=== PATIENT | female | born 1995 | race Caucasian/White ===

== ENCOUNTER 2016-09-14 00:53 | Observation (INO) ==
[2016-09-14 01:56] LABS: Bilirubin,Urine Negative (Negative); Blood,Urine Negative (Negative); Clarity,Urine Cloudy (Clear); Color,Urine Dark Yellow (Yellow); Glucose,Urine (UA) >=1000 mg/dL (Normal); Ketones,Urine 40 mg/dL (Negative); Leukocyte Esterase,Urine Negative (Negative); Nitrite,Urine Negative (Negative); PH,Urine 5.5 pH Units (5.0-8.0); Protein,Urine Trace mg/dL (Neg-Trace); Specific Gravity,Urine > 1.030 (1.010-1.025); Urobilinogen,Urine Normal (Normal)
[2016-09-14 01:57] LABS: Bacteria,Urine Few per hpf (None-Few); Hyaline Casts,Urine None Seen per lpf (None-Few); Squamous Epithelial Cell,Urine Many per lpf (None-Few)
[2016-09-14 02:06] LABS: Calcium Oxalate Crystals,Urine Present; RBC,Urine 0-3 per hpf (0-3)
[2016-09-14] MEDS ORDERED: NIFEdipine 10 MG CAPSULE PO ONE (02:36)
[2016-09-14] MEDS ORDERED: 0.9 % Sodium Chloride 1,000 ML IVC SCH (02:45)
[2016-09-14 04:00] LABS: Basophils % 0.3 %; Eosinophils % 0.3 %; Hematocrit 35.5 % (35.3-44.9); Immature Granulocytes % 0.5 % (0-4); Lymphocytes # 1.6 K/mcL (0.6-4.6); Lymphocytes % 19.6 %; Mean Corpuscular HGB Conc 33.8 g/dL (31.6-35.5); Mean Corpuscular Hemoglobin 27.8 pg (28.0-33.3); Mean Corpuscular Volume 82.2 fL (83.0-100.0); Mean Platelet Volume 10.2 fL (9.4-12.4); Monocytes # 0.7 K/mcL (0.0-1.3); Monocytes % 8.2 %; Neutrophils # 5.6 K/mcL (1.6-8.9); Platelet Count 185 K/mcL (140-400); Red Blood Count 4.32 M/mcL (3.82-4.97); Red Cell Distribution Width 13.3 % (11.5-14.5); Segmented Neutrophils % 71.1 %
[2016-09-14] MEDS ORDERED: Terbutaline 1 MG/ML VIAL SQ ONE (07:47)
[2016-09-14] MEDS ORDERED: Insulin LISPRO 300 UNITS/3 ML VIAL SQ ONE (07:48)
--- NOTE | 2016-09-14 09:06 | OB/GYN History & Physical ---
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 Weiss is a 21 year old female 3 para 1011 at 31 weeks who presented to labor and delivery with complaint of contractions and vaginal pressure. Patient gets her care at another facility she did call the OB correspondence school instructor for them he wanted her to come to the hospital but she chose to come here instead. Patient states she lives locally did not have transportation. Patient's upon arrival to labor and delivery was rocco irregularly. Patient is a type I diabetic on control. She is being managed by [place] [facility] for her diabetes. Patient is supposed to be on a insulin pump but hers broke and they have not replaced up for her. Blood sugars on admission were over 200. Patient was here last week and had a panic attack while here and had presented with similar complaints. Patient was given 1 dose of Procardia 10 mg on admission contractions spaced out but did not stop. Physician on-call was concerned about her panic attack with tachycardia last week reason did not want to try the terbutaline. Patient has not had steroids yet during this with her [id number] blood sugars I am apprehensive starting them at this time also states that she is not outpatient for long-term management. Patient was closed and thick on admission and after 2 hours she was reexamined also noted to be closed and thick. She is complaining of thick white discharge speculum exam did reveal a thick discharge suggestive candidiasis. Urinalysis did show that she was dehydrated with high specific gravity was greater than 1000 glucose. She denies any leaking of fluid is still having movement. She did receive 1 dose of terbutaline pulse was in the 80s contractions spaced out. Past Med Surg Social Fam HX - Past Medical History Source: patient Medical history: diabetes (type 1), other (History of HELLP syndrome with last ) Psychiatric history: anxiety, depression - Past Surgical History Surgical History: , other (Tubes and her ears) - Social History Smoking Status: Former smoker Smokeless Tobacco Status: No Alcohol use: none Drug use: none Occupational status: unemployed Current living situation: Home - Independent Activity Level: Independent ambulation Recent Out of Country Travel Within the Last 8 Weeks: No Exposure or Possible Exposure to Illness During Travel: No - Family History Mother Living Status: Still Living Hx Family Cardiac Disorders: Yes (CHF) Hx Family Respiratory Disorders: No Hx Family Cancer: No Hx Family GI Disorders: No Hx Family Endocrine Disorder: Yes (DIABETIC) Hx Family Neuromuscular Disorders: No Hx Family Neurologic Disorders: No Hx Family HEENT Disorders: No Hx Family Autoimmune Disorders: No Hx Family Medical Disorders: Yes (factor 5) Obstetrical History - Pregnancies : 3 Para: 1 Term: 1 Ab's: 1 Livin Medications and Allergies NovoLOG SQ 09/04/15 [History] HumuLIN NPH 15 units SQ BID 08/11/16 [History] Vit #108/Iron/FA [ One Tablet] 1 each PO DAILY 09/14/16 [ History] Allergies latex Adverse Reaction (Verified 08/11/16 22:10) Rash Review of System OB All systems PM: reviewed and no additional remarkable complaints except as stated - Genitourinary Genitourinary: vaginal discharge (Thick white with pruritus), other (Complaint of irregular contractions) Exam - Constitutional Constitutional: well developed, well nourished, mild distress, obese - HEENT HEENT: PERRL - Neck Neck exam: full ROM - Lungs Respiratory exam: CTAB - Cardiovascular Cardiovascular exam: RRR - Abdomen Abdomen: Present: gravid - Vagina Vagina: Present: discharge (Sterile speculum exam revealed a thick white vaginal discharge with erythema of the vaginal mucosa suggestive candidiasis) - Cervix Dilation: 0 Effacement: 20 Station: -4 - Uterus Uterus exam: Present: enlarged - Comments Comments: heart tones in 140s reactive contractions were every 2-3 minutes after the terbutaline have spaced out to every 10-15 minutes Results Result Diagrams: 09/14/16 03:54 Abnormal lab results MCV 82.2 fL (83.0-100.0) L 09/14/16 03:54 MCH 27.8 pg (28.0-33.3) L 09/14/16 03:54 POC Glucose 188 (58-89) H 09/14/16 07:44 Urine Clarity Cloudy (Clear) A 09/14/16 01:40 Ur Specific [place] > 1.030 (1.010-1.025) H 09/14/16 01:40 Urine Glucose (UA) >=1000 mg/dL (Normal) H 09/14/16 01:40 Urine Ketones 40 mg/dL (Negative) H 09/14/16 01:40 Urine Microscopic WBC 3-5 per hpf (0-3) H 09/14/16 01:40 Ur Squamous Epith Cells Many per lpf (None-Few) H 09/14/16 01:40 All other labs normal. - VTE Reasons for not Prescribing Prophylaxis: Treatment not Indicated - Low risk for VTE
[2016-09-14] MEDS ORDERED: Insulin Regular, Human 100 UNIT/ML SQ ONE (09:14)
--- NOTE | 2016-09-14 11:26 | OB/GYN Progress Note ---
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 Current Visit: Yes Status: Acute Patient needs to call maternal medicine with her blood sugars to determine what they wanted to since they will not controlled with her current dose (3) Candidiasis of female genitalia Current Visit: Yes Status: Acute We will discharge home with a prescription for terconazole 7 and have her follow -up with her own [employer] [facility] within the next 1-2 days (4) contractions Current Visit: No Status: Acute We will continue close observation the patient continues to contract and requires magnesium sulfate did discuss about transfer to [facility] Subjective - Subjective Interval history: Patient still complaining of pressure but no contraction seen since she got that terbutaline. Blood sugar continues to remain elevated even after 4 units of insulin. Patient needs to take her home Humalog with her own sliding scale. At this point she has made no cervical change I see no contractions and there is no reason for us to have to keep her here. Will discharge home if patient continues to feel pressure she needs to call her own [employer] or head up to [place]. She needs to call about her blood sugars to see what the [facility] doctors wanted to about them since so [id number]. She has not appointment in a couple of days with her [employer] did advise a she needs to call them today or tomorrow to let no discharge was here. We will discharge her home with prescription for terconazole 7. Objective - Vital Signs Vital Signs: Intake and Output 09/13/16 09/14/16 09/14/16 23:59 07:59 15:59 Other: Weight 86.9 kg Patient Weight 09/14/16 23:59 Weight 86.9 kg - Exam FHR: category 1 FHR comments: heart tones 140s reactive no contraction seen Auscultation: bilateral: normal Abdomen: Present: gravid Cervical dilation: closed Cervix effacement: thick station: not engaged - Labs Labs: Abnormal lab results MCV 82.2 fL (83.0-100.0) L 09/14/16 03:54 MCH 27.8 pg (28.0-33.3) L 09/14/16 03:54 POC Glucose 206 (58-89) H 09/14/16 09:12 Urine Clarity Cloudy (Clear) A 09/14/16 01:40 Ur Specific [place] > 1.030 (1.010-1.025) H 09/14/16 01:40 Urine Glucose (UA) >=1000 mg/dL (Normal) H 09/14/16 01:40 Urine Ketones 40 mg/dL (Negative) H 09/14/16 01:40 Urine Microscopic WBC 3-5 per hpf (0-3) H 09/14/16 01:40 Ur Squamous Epith Cells Many per lpf (None-Few) H 09/14/16 01:40
== END 2016-09-14 11:38 | disposition home or self-care (01) ==
LOC: 1NENULAB
PROVIDERS: ADMIT Obstetrics & Gynecology; ATTEND Obstetrics & Gynecology

== ENCOUNTER → 2016-09-30 23:44 | Observation (INO) ==
[2016-09-30 22:05] VITALS: BP 131/77
--- NOTE | 2016-09-30 22:23 | OB/GYN History & Physical ---
Date of Encounter: 09/30/16 Time of Encounter: 22:21 Assessment and Plan (1) Head ache Current visit: Yes Status: Acute History of HELLP - CBC, PIH, CMP - Imitrex - zofran - will monitor Qualifiers: Headache type: unspecified Headache chronicity pattern: acute headache Intractability: not intractable Qualified Code(s): R51 - Headache (2) Nausea Current visit: Yes Status: Acute (3) 33 weeks gestation of Current visit: Yes Status: Acute History of Present Illness HPI: Ms. Weiss is a 21 year old female with type 1 diabetes, who is presenting to the facility for a 3 day history of a right-sided headache and blurred vision. She states her vision is not blurry as it has been right now. She is also nauseated and has photophobia with this headache. She has not vomited. She states she has taken Phenergan with relief of the nausea but Tylenol has not helped with her headache. She describes the headache as dull and on the right side of her head. She also has a one-day history of burning during urination. She states she does have a watery vaginal discharge. She does have a previous history of hellp syndrome with her last . She states she also had a headache and blurred vision like this during that time. She is comfortable in bed eating ice chips at this time. Past Med Surg Social Fam HX - Past Medical History Medical history: diabetes, migraine, other Psychiatric history: anxiety, depression - Past Surgical History Surgical History: , other - Social History Smoking Status: Former smoker Smokeless Tobacco Status: No Alcohol use: none Drug use: none - Family History Mother Living Status: Still Living Hx Family Cardiac Disorders: Yes (SC) Hx Family Respiratory Disorders: No Hx Family Cancer: No Hx Family GI Disorders: No Hx Family Genitourinary Disorders: No Hx Family Endocrine Disorder: Yes (DIABETIC) Hx Family Musculoskeletal Disorders: No Hx Family Neuromuscular Disorders: No Hx Family Neurologic Disorders: No Hx Family HEENT Disorders: No Hx Family Autoimmune Disorders: No Hx Family Reproductive Disorders: No Hx Family Psychosocial Disorders: No Hx Family Medical Disorders: No Obstetrical History - Pregnancies : 3 Para: 1 - History/Complications History/Complications: Type 1 Diabetes HELLP with previous Medications and Allergies HumuLIN NPH 15 units SQ BID 08/11/16 [History] Vit #108/Iron/FA [ One Tablet] 1 each PO DAILY 09/14/16 [ History] Humalog 09/30/16 [History] Allergies latex Adverse Reaction (Verified 08/11/16 22:10) Rash Review of System OB All systems PM: reviewed and no additional remarkable complaints except as stated (Patient denies any syncope or dizziness. She does report a right-sided headache with blurred vision. She denies any trauma. She does report nausea but no vomiting or diarrhea. She reports a watery vaginal discharge. She also reports earning during urination. She has not increased urgency. She denies any hematuria or hematochezia or melena. She reports some minor swelling to her hands and feet. She also reports a diffuse abdominal pain. She denies any chest pain. She states she has been more short of breath today than normal. Patient denies any seizures.) Exam - Vital Signs Vital signs: Initial Vital Signs Temp Pulse Resp BP 97.8 F 108 16 131/77 09/30/16 21:55 09/30/16 21:55 09/30/16 21:55 09/30/16 21:55 - Constitutional Constitutional: well developed, well nourished, no acute distress - HEENT HEENT: EOMI, PERRL, Normocephaly, Mucus Membranes Moist, Other (Cranial nerves II through XII intact, normal rapid alternating movements) - Neck Neck exam: full ROM, normal inspection, supple, trachea midline - Lungs Respiratory exam: CTAB - Cardiovascular Cardiovascular exam: RRR - Abdomen Abdomen: Present: bowel sounds normal, gravid, non tender - Extremities Extremities exam: full ROM, normal capillary refill, normal inspection, radial pulses palpable and symetrical Deep Tendon Reflex Grade: 2+ Normal - Vagina Vagina: Present: normal moisture - Cervix Cervix: Present: discharge (Normal physiologic) Dilation: 0 (closed, fixed, posterior and high) Station: -4 - Uterus Uterus exam: Present: enlarged, normal contour. Absent: tender - Anus/Rectum Anus/Rectum: Present: normal perianal skin Results Result Diagrams: 09/30/16 22:27 09/30/16 22:27 All other labs normal. - Attending Attestation I examined this patient and my medical decision-making was reviewed with the HOUSING INSPECTOR/PA/Advanced Practice Nurse/Resident Physician. I agree with the documented findings, disposition and treatment plan as described except to the extent set forth below.
[2016-09-30 22:32] LABS: Bilirubin,Urine Negative (Negative); Blood,Urine Negative (Negative); Clarity,Urine Clear (Clear); Color,Urine Yellow (Yellow); Glucose,Urine (UA) 500 mg/dL (Normal); Ketones,Urine Trace mg/dL (Negative); Leukocyte Esterase,Urine Negative (Negative); Nitrite,Urine Negative (Negative); Protein,Urine Negative (Neg-Trace); Urobilinogen,Urine Normal (Normal)
[2016-09-30 22:36] LABS: Basophils % 0.1 %; Eosinophils % 0.2 %; Hematocrit 36.8 % (35.3-44.9); Hemoglobin 12.2 g/dL (11.5-15.4); Immature Granulocytes % 0.3 % (0-4); Lymphocytes # 1.7 K/mcL (0.6-4.6); Lymphocytes % 17.4 %; Mean Corpuscular HGB Conc 33.2 g/dL (31.6-35.5); Mean Corpuscular Hemoglobin 27.1 pg (28.0-33.3); Mean Corpuscular Volume 81.8 fL (83.0-100.0); Mean Platelet Volume 10.1 fL (9.4-12.4); Monocytes # 0.8 K/mcL (0.0-1.3); Monocytes % 8.4 %; Neutrophils # 7.2 K/mcL (1.6-8.9); Platelet Count 216 K/mcL (140-400); Red Cell Distribution Width 13.2 % (11.5-14.5); Segmented Neutrophils % 73.6 %
[2016-09-30 22:49] LABS: Alanine Aminotransferase 13 Units/L (0-55); Aspartate Amino Transferase 11 Units/L (5-34); BUN/Creatinine Ratio 17 (6-26); Blood Urea Nitrogen 10 mg/dL (7-20); Lactate Dehydrogenase 351 Units/L (159-327); Uric Acid 3.4 mg/dL (2.6-6.0); eGFR For African Americans > 60 (> 60); eGFR For Non-African Americans > 60 (> 60)
--- NOTE | 2016-09-30 23:23 | Discharge Summary ---
Date of Encounter: 09/30/16 Time of Encounter: 23:24 - Discharge Diagnosis (1) Head ache Priority: Primary Status: Acute Qualifiers: Headache type: unspecified Headache chronicity pattern: acute headache Intractability: not intractable Qualified Code(s): R51 - Headache (2) Nausea Priority: Secondary Status: Acute (3) 33 weeks gestation of Priority: Secondary Status: Acute - Discharge Medications Home Medications: HumuLIN NPH 15 units SQ BID 08/11/16 [History] Vit #108/Iron/FA [ One Tablet] 1 each PO DAILY 09/14/16 [ History] Humalog 09/30/16 [History] Allergies/Adverse Reactions: Allergies latex Adverse Reaction (Verified 08/11/16 22:10) Rash Data Procedures and tests throughout hospitalization: Laboratory Tests 09/30/16 09/30/16 09/30/16 22:00 22:27 22:27 WBC 9.7 RBC 4.50 Hgb 12.2 Hct 36.8 MCV 81.8 L MCH 27.1 L MCHC 33.2 RDW 13.2 Plt Count 216 MPV 10.1 Immature Gran % 0.3 Seg Neutrophils % 73.6 Lymphocytes % 17.4 Monocytes % 8.4 Eosinophils % 0.2 Basophils % 0.1 Neutrophils # 7.2 Lymphocytes # 1.7 Monocytes # 0.8 Eosinophils # 0.0 Basophils # 0.0 Immature Plt Fraction 4.0 BUN 10 Creatinine 0.59 Est GFR ( Amer) > 60 Est GFR (Non-Af Amer) > 60 BUN/Creatinine Ratio 17 Uric Acid 3.4 AST 11 ALT 13 Lactate Dehydrogenase 351 H Urine Color Yellow Urine Clarity Clear Urine pH 7.0 Ur Specific [place] 1.020 Urine Protein Negative Urine Glucose (UA) 500 H Urine Ketones Trace H Urine Blood Negative Urine Nitrite Negative Urine Bilirubin Negative Urine Urobilinogen Normal Ur Leukocyte Esterase Negative Ur Culture Indicated? NO Labs on day of discharge: Labs from last 24 hours 09/30/16 09/30/16 09/30/16 22:27 22:27 22:00 WBC 9.7 RBC 4.50 Hgb 12.2 Hct 36.8 MCV 81.8 L MCH 27.1 L MCHC 33.2 RDW 13.2 Plt Count 216 MPV 10.1 Immature Gran % 0.3 Seg Neutrophils % 73.6 Lymphocytes % 17.4 Monocytes % 8.4 Eosinophils % 0.2 Basophils % 0.1 Neutrophils # 7.2 Lymphocytes # 1.7 Monocytes # 0.8 Eosinophils # 0.0 Basophils # 0.0 Immature Plt Fraction 4.0 Sodium Pending Potassium Pending Chloride Pending Carbon Dioxide Pending BUN 10 Creatinine 0.59 Est GFR ( Amer) > 60 Est GFR (Non-Af Amer) > 60 BUN/Creatinine Ratio 17 Glucose Pending Uric Acid 3.4 Calcium Pending Total Bilirubin Pending AST 11 ALT 13 Alkaline Phosphatase Pending Lactate Dehydrogenase 351 H Serum Total Protein Pending Albumin Pending Urine Color Yellow Urine Clarity Clear Urine pH 7.0 Ur Specific [place] 1.020 Urine Protein Negative Urine Glucose (UA) 500 H Urine Ketones Trace H Urine Blood Negative Urine Nitrite Negative Urine Bilirubin Negative Urine Urobilinogen Normal Ur Leukocyte Esterase Negative Ur Culture Indicated? NO - Impressions Migraine headache. - Additional Comments Patient states that she is no longer nauseated. She states her headache has been relieved. She is requesting discharge at this time. I feel this is reasonable. Her lab work and urinalysis was normal. Date of admission: 09/30/16 21:51 Primary care physician: Shantelle Soares - Patient Status Disposition: Home, Self-Care Condition: Good Functional capacity at discharge: independent ambulation Overall status at discharge: patient is back to baseline - Discharge Instructions Instructions: Migraine Headache (GEN) Follow Up With: Shantelle Soares MD [Primary Care Provider] - Additional Instructions: 1. Please follow-up with your OB doctor within 1 week. 2. Please continue to drink plenty of clear fluids. 3. If her symptoms return or you have any questions or concerns please go to the emergency room. - Diet and Activity Activity: increase activity as tolerated Diet: diabetic diet Hospital Course MEDICAL NUMERICAL CONTROL OPERATOR Time Attestation: Total time spent providing and/or coordinating discharge services: Time Spent: Less than 30 minutes Exam - Constitutional Vitals: Temp Pulse Resp BP 97.8 F 108 16 131/77 09/30/16 21:55 09/30/16 21:55 09/30/16 21:55 09/30/16 21:55 General appearance IM: A&O X 3, pleasant, no acute distress - Attending Attestation I examined this patient and my medical decision-making was reviewed with the [place] CONSULTANT/PA/Advanced Practice Nurse/Resident Physician. I agree with the documented findings, disposition and treatment plan as described except to the extent set forth below.
[2016-09-30 23:28] LABS: Albumin 2.4 g/dL (3.5-5.0); Albumin/Globulin Ratio 0.6 (1.1-2.2); Alkaline Phosphatase 95 Units/L (38-126); Bilirubin,Total 0.2 mg/dL (0.2-1.2); Calcium 9.1 mg/dL (8.6-10.8); Carbon Dioxide 20 mEq/L (19-29); Chloride 108 mEq/L (98-109); Globulin 3.9 g/dL (2.4-3.5); Glucose 165 mg/dL (70-99); Osmolality,Calculated 289 (280-300); Potassium 3.9 mEq/L (3.5-4.5); Sodium 138 mEq/L (136-145); Total Protein 6.3 g/dL (6.0-8.3)
[~2016-09-30 23:44] MED LIST: Ondansetron ODT 4 MG TAB.RAPDIS SL STA; SUMAtriptan succinate 25 MG TABLET PO STA
== END | disposition home or self-care (01) ==
LOC: 1NENULAB
PROVIDERS: ADMIT Obstetrics & Gynecology; ATTEND Obstetrics & Gynecology

== ENCOUNTER 2019-04-08 05:51 | Observation (INO) ==
[2019-04-08] MEDS ORDERED: Nitroglycerin 0.4 MG TAB.SUBL SL PRN ×2 (05:55→07:58)
[2019-04-08] MEDS ORDERED: Aspirin 81 MG TAB.CHEW PO ONE (05:55)
--- NOTE | 2019-04-08 05:58 | Emergency Department Note ---
Disposition Clinical Impression: Hyperglycemia Urinary tract infection Qualifiers: Urinary tract infection type: acute cystitis Hematuria presence: without hematuria Qualified Code(s): N30.00 - Acute cystitis without hematuria Chest pain Qualifiers: Chest pain type: unspecified Qualified Code(s): R07.9 - Chest pain, unspecified Disposition: Admitted As Inpatient Condition: Fair Referrals: NONE,PCP [Primary Care Provider] - Time of Disposition: 07:06 Chest Pain HPI - General Chief Complaint: ED Chest Pain Stated Complaint: CP Hx of OR, and a seizure tonight Time Seen by Provider: 04/08/19 05:53 Source: patient, family Mode of arrival: ambulatory Limitations: no limitations Vital Signs Reviewed: Yes Nursing Notes Reviewed: Yes - History of Present Illness HPI Narrative: 23-year-old female past medical history of type 1 diabetes mellitus, myocardial infarction one year ago with coronary artery dissection plus embolism, currently on aspirin and Plavix, epilepsy on clonazepam well-controlled with last seizure approximately one year ago. Presenting for one day of nausea vomiting, midsternal chest pain with numbness and paresthesias into the upper left extremity. Patient states that she has recently been having urinary symptoms of urgency and dysuria she states that UTIs never triggered her seizure disorder in the past. She denies fevers chills, she states that she has had some neck and back pain but has full range of motion in her neck without rigidity, she has no abnormal bleeding, no other concerns or complaints this time. Upon my initial evaluation, my general impression is that the patient is uncomfortable due to her symptoms. She is otherwise awake, alert, oriented, engaged to conversation and answering questions appropriately. There are no overt lateralizing signs, the patient is in no acute distress; their skin appears to be normal in color, they are not pale, not cyanotic, and not diaphoretic, they are sitting up in hospital bed interacting appropriately with environment. Pt complaint: chest pain (Patient describes pain as 2 out of 10 on the pain scale with worst pain occurring earlier tonight for out of 10 described as a heaviness in the midsternal region.) Onset (ago): hour(s) (Patient will sleep roughly one half ago the symptoms.) Duration: other (Improving) Onset: during rest Pain Location: substernal Severity: mild Severity scale (1-10): 2 Quality: tightness, heaviness Pain Radiation: LUE Context: recent illness Associated symptoms: Reports: nausea, vomiting, dyspnea Treatments prior to arrival chest pain: none - Related Data Home Medications Medication Instructions Recorded Confirmed Insulin LISPRO [HumaLOG] 0 units SQ TIDWM 11/02/17 11/02/17 Aspirin Enteric Coated [Aspirin EC] 81 mg PO DAILY 04/05/18 04/05/18 Atorvastatin Calcium [Lipitor] 80 mg PO DAILY 04/05/18 04/05/18 Clopidogrel [Plavix] 75 mg PO DAILY 04/05/18 04/05/18 Gabapentin [Gralise] 300 mg PO TID 04/05/18 04/05/18 Lisinopril [Zestril] 5 mg PO DAILY 04/05/18 04/05/18 clonazePAM [Clonazepam] 1 mg PO BID 04/05/18 04/05/18 Previous Rx's Medication Instructions Recorded HydrOXYzine Pamoate [Vistaril] 50 mg PO QID PRN #10 capsule 11/02/17 Ibuprofen [Motrin] 800 mg PO Q8HR #15 tablet 11/02/17 Cyclobenzaprine [Flexeril] 10 mg PO TID PRN #20 tablet 04/05/18 Tramadol HCl/Acetaminophen 1 each PO Q6HR PRN 3 Days #10 04/05/18 [Ultracet Tablet] tablet Ondansetron ODT [Zofran ODT] 4 mg SL Q8HR PRN #14 tab.rapdis 08/13/18 Allergies Allergy/AdvReac Type Severity Reaction Status Date / Time latex AdvReac Rash Verified 11/02/17 23:16 Review of Systems: *See History of Present Illness for more detail Constitutional: Denies: fever, chills Cardiovascular: Admits: chest pain Respiratory: Admits: dyspnea, denies: cough, hemoptysis Gastrointestinal: Admits: nausea, vomiting, denies: Abdominal pain, diarrhea, constipation, hematemesis, melena, hematochezia Genitourinary: Denies: hematuria Musculoskeletal: Admits: back pain, neck pain Integumentary: Denies: rash Neurological: Admits to weakness Denies: headache, lightheadedness/dizziness, numbness, paresthesias, difficulty with ambulation. Endocrine: Admits: fatigue Hematological/Lymphatic: Denies: easy bleeding, easy bruising All systems ED: reviewed and negative except as stated. Review of Systems: As Per HPI Chest Pain PMH - Past Medical History Medical history: Reports: diabetes, migraine, myocardial infarction Surgical history: Reports: , other Psychiatric history: Reports: anxiety, depression [employer] history: Reports: other - Social History Smoking Status: 2nd Hand Smoke Exposure Alcohol use: Reports: none Drug use: Reports: none Physical Exam Constitutional: No acute distress, [id number], engaged to conversation, speech is fluid, answers questions appropriately Neuro: GCS 15, no overt focal neurological deficits Head: Atraumatic, normocephalic Eyes: Pupils equal, round and reactive to light, no scleral icterus, no conjunctival injection Neck: Trachea midline without deviation. Anterior neck is supple without swelling. *Chest: Symmetric chest wall rise *Heart: Cardiac rhythm and rate are regular with S1 and S2 , no S3 or S4 appreciated, no murmurs, gallops, rubs, or clicks. *Lungs: Lungs are clear to auscultation bilaterally, without accessory muscle use or prolonged expiratory phase. No wheezes, rhonchi or stridor appreciated. Abdomen: Abdomen is flat, soft to palpation, normal bowel sounds. No abdominal bruit auscultated. Non-distended, non-rigid, no organomegaly, no ascites appreciated. No pulsatile mass, no tenderness or guarding to palpation in all four quadrants, no rebound Extremities: Normal capillary refill without evidence of pedal edema, joint swelling or erythema. Pulses/motor intact in all 4 extremities. Psychiatric exam: Patient displays a normal affect and mood for the environment. No overt signs of hallucination. Integumentary: warm, dry, intact, normal color. No rash, cyanosis, diaphoresis, erythema, or pallor - General Limitations: no limitations General appearance: alert, in no apparent distress Course Course Narrative: ED chest pain workup basic labs, urinalysis, urine , coags, troponin, chest x-ray/old EKG Aspirin plus nitroglycerin the management of patient's symptoms. Vital Signs Temperature 97.9 F 04/08/19 06:00 Pulse Rate 86 04/08/19 06:00 Respiratory Rate 18 04/08/19 06:00 Blood Pressure 117/76 04/08/19 06:00 O2 Sat by Pulse Oximetry 98 04/08/19 06:00 Temperature 97.9 F 04/08/19 06:00 Pulse Rate 86 04/08/19 06:00 Respiratory Rate 18 04/08/19 06:00 Blood Pressure 117/76 04/08/19 06:00 O2 Sat by Pulse Oximetry 98 04/08/19 06:00 Oxygen Delivery Oxygen Delivery Room Air Chest Pain - MDM Narrative Medical decision making narrative: Patient's urinalysis is positive for urinary tract infection. Glucoses over 500. I will give the patient 1 g of Rocephin at this time and start her on 2 L of IV fluids. Remainder of labs are currently pending. Patient will be signed out to day shift staff of Dr. Parker Nesbitt and Dr. Monique Trujillo at the end of my shift. Please see documentation by these physicians for further evaluation, management, and final disposition. The patient is hemodynamically stable at the time of transfer of care. - Lab Data Result diagrams: 04/08/19 06:08 04/08/19 06:08 Lab Results 04/08/19 04/08/19 04/08/19 Range/Units 06:08 06:08 06:08 WBC 7.3 (4.3-11.1) K/mcL RBC 5.32 H (3.82-4.97) M/mcL Hgb 14.8 (11.5-15.4) g/dL Hct 43.7 (35.3-44.9) % MCV 82.1 L (83.0-100.0) fL MCH 27.8 L (28.0-33.3) pg MCHC 33.9 (31.6-35.5) g/dL RDW 12.7 (11.5-14.5) % Plt Count 217 (140-400) K/mcL MPV 9.5 (9.4-12.4) fL Immature Gran % 0.3 (0-4) % Seg Neutrophils % 86.3 % Lymphocytes % 8.6 % Monocytes % 4.6 % Eosinophils % 0.1 % Basophils % 0.1 % Neutrophils # 6.3 (1.6-8.9) K/mcL Lymphocytes # 0.6 (0.6-4.6) K/mcL Monocytes # 0.3 (0.0-1.3) K/mcL Eosinophils # 0.0 (0.0-0.6) K/mcL Basophils # 0.0 (0.0-0.2) K/mcL PT 10.3 (9.4-12.1) Seconds INR 0.9 APTT 29.2 (26.0-36.0) Seconds Sodium 138 (136-145) mEq/L Potassium 4.0 (3.5-5.1) mEq/L Chloride 102 (98-107) mEq/L Carbon Dioxide 24 (23-29) mEq/L BUN 15 (6-20) mg/dL Creatinine 0.59 L (0.60-1.20) mg/dL Est GFR ( Amer) > 60 (> 60) Est GFR (Non-Af Amer) > 60 (> 60) BUN/Creatinine Ratio 25 (6-26) Glucose 502 H* (70-105) mg/dL Calculated Osmolality 309 H (280-300) Calcium 9.0 (8.6-10.3) mg/dL Troponin I < 0.03 (< 0.04) ng/mL Urine Color (Yellow) Urine Clarity (Clear) Urine pH (5.0-8.0) pH Units Ur Specific [place] (1.010-1.025) Urine Protein (Neg-Trace) mg/dL Urine Glucose (UA) (Normal) mg/dL Urine Ketones (Negative) mg/dL Urine Blood (Negative) Urine Nitrite (Negative) Urine Bilirubin (Negative) Urine Urobilinogen (Normal) mg/dL Ur Leukocyte Esterase (Negative) Urine Microscopic RBC (0-3) per hpf Urine Microscopic WBC (0-3) per hpf Ur Squamous Epith Cells (None-Few) per lpf Urine Bacteria (None-Few) per hpf Hyaline Casts (None-Few) per lpf Ur Culture Indicated? (NO) Urine Test (Negative) 04/08/19 04/08/19 Range/Units 06:15 06:15 WBC (4.3-11.1) K/mcL RBC (3.82-4.97) M/mcL Hgb (11.5-15.4) g/dL Hct (35.3-44.9) % MCV (83.0-100.0) fL MCH (28.0-33.3) pg MCHC (31.6-35.5) g/dL RDW (11.5-14.5) % Plt Count (140-400) K/mcL MPV (9.4-12.4) fL Immature Gran % (0-4) % Seg Neutrophils % % Lymphocytes % % Monocytes % % Eosinophils % % Basophils % % Neutrophils # (1.6-8.9) K/mcL Lymphocytes # (0.6-4.6) K/mcL Monocytes # (0.0-1.3) K/mcL Eosinophils # (0.0-0.6) K/mcL Basophils # (0.0-0.2) K/mcL PT (9.4-12.1) Seconds INR APTT (26.0-36.0) Seconds Sodium (136-145) mEq/L Potassium (3.5-5.1) mEq/L Chloride (98-107) mEq/L Carbon Dioxide (23-29) mEq/L BUN (6-20) mg/dL Creatinine (0.60-1.20) mg/dL Est GFR ( Amer) (> 60) Est GFR (Non-Af Amer) (> 60) BUN/Creatinine Ratio (6-26) Glucose (70-105) mg/dL Calculated Osmolality (280-300) Calcium (8.6-10.3) mg/dL Troponin I (< 0.04) ng/mL Urine Color Yellow (Yellow) Urine Clarity Cloudy A (Clear) Urine pH 7.0 (5.0-8.0) pH Units Ur Specific [place] > 1.030 H (1.010-1.025) Urine Protein Negative (Neg-Trace) mg/dL Urine Glucose (UA) >=1000 H (Normal) mg/dL Urine Ketones 40 H (Negative) mg/dL Urine Blood Negative (Negative) Urine Nitrite Positive A (Negative) Urine Bilirubin Negative (Negative) Urine Urobilinogen Normal (Normal) mg/dL Ur Leukocyte Esterase Small H (Negative) Urine Microscopic RBC 0-3 (0-3) per hpf Urine Microscopic WBC TNTC H (0-3) per hpf Ur Squamous Epith Cells Many H (None-Few) per lpf Urine Bacteria Many H (None-Few) per hpf Hyaline Casts None Seen (None-Few) per lpf Ur Culture Indicated? YES A (NO) Urine Test Negative (Negative) - EKG Data EKG attestation: Yes I reviewed and interpreted this EKG. EKG results narrative: The patients EKG shows a sinus rhythm at a rate of 86 beats per minute, VT interval of 140 milliseconds, a QRS duration of 81 milliseconds, a QT/QTc interval of 359 / 430 milliseconds respectively. There are no significant ST segment elevations, depressions, pathologic Q waves, abnormal T-wave inversions, nor any other signs of acute ischemic change. This EKG that was performed today is generally consistent in morphology with prior EKG that was performed on August [id number]. Heart Score - Score History: Moderately Suspicious EKG: Normal Age: Less than 45 Risk Factors: Equal/Greater than 3 risk factor or history of atherosclerotic d isease Troponin: Less than normal limit HEART Score Total: 3
[2019-04-08 06:20] LABS: Basophils % 0.1 %; Eosinophils % 0.1 %; Hematocrit 43.7 % (35.3-44.9); Hemoglobin 14.8 g/dL (11.5-15.4); Immature Granulocytes % 0.3 % (0-4); Lymphocytes # 0.6 K/mcL (0.6-4.6); Lymphocytes % 8.6 %; Mean Corpuscular HGB Conc 33.9 g/dL (31.6-35.5); Mean Corpuscular Hemoglobin 27.8 pg (28.0-33.3); Mean Corpuscular Volume 82.1 fL (83.0-100.0); Mean Platelet Volume 9.5 fL (9.4-12.4); Monocytes # 0.3 K/mcL (0.0-1.3); Monocytes % 4.6 %; Neutrophils # 6.3 K/mcL (1.6-8.9); Platelet Count 217 K/mcL (140-400); Red Blood Count 5.32 M/mcL (3.82-4.97); Red Cell Distribution Width 12.7 % (11.5-14.5); Segmented Neutrophils % 86.3 %; White Blood Count 7.3 K/mcL (4.3-11.1)
[2019-04-08 06:30] LABS: INR 0.9; Prothrombin Time 10.3 Seconds (9.4-12.1)
[2019-04-08 06:31] LABS: Bilirubin,Urine Negative (Negative); Blood,Urine Negative (Negative); Clarity,Urine Cloudy (Clear); Color,Urine Yellow (Yellow); Glucose,Urine (UA) >=1000 mg/dL (Normal); Ketones,Urine 40 mg/dL (Negative); Leukocyte Esterase,Urine Small (Negative); Nitrite,Urine Positive (Negative); Protein,Urine Negative (Neg-Trace); Specific Gravity,Urine > 1.030 (1.010-1.025); Urobilinogen,Urine Normal (Normal)
[2019-04-08 06:33] LABS: Bacteria,Urine Many per hpf (None-Few); Hyaline Casts,Urine None Seen per lpf (None-Few); RBC,Urine 0-3 per hpf (0-3); Squamous Epithelial Cell,Urine Many per lpf (None-Few); WBC,Urine TNTC per hpf (0-3)
[2019-04-08 06:33] LABS: Activated Partial Thrombo Time 29.2 Seconds (26.0-36.0)
[2019-04-08 06:44] LABS: BUN/Creatinine Ratio 25 (6-26); Blood Urea Nitrogen 15 mg/dL (6-20); Carbon Dioxide 24 mEq/L (23-29); Chloride 102 mEq/L (98-107); Glucose 502 mg/dL (70-105); Osmolality,Calculated 309 (280-300); Sodium 138 mEq/L (136-145); Troponin I < 0.03 ng/mL (< 0.04); eGFR For African Americans > 60 (> 60); eGFR For Non-African Americans > 60 (> 60)
[2019-04-08] MEDS ORDERED: cefTRIAXone 1,000 MG in 0.9 % Sodium Chloride Mini Bag 100 ML IVPB ONE (06:49)
[2019-04-08] MEDS ORDERED: Ondansetron 4 MG/2 ML VIAL IVP STA (06:55)
--- NOTE | 2019-04-08 06:58 | Emergency Department Note ---
Disposition Clinical Impression: Hyperglycemia Urinary tract infection Qualifiers: Urinary tract infection type: acute cystitis Hematuria presence: without hematuria Qualified Code(s): N30.00 - Acute cystitis without hematuria Chest pain Qualifiers: Chest pain type: unspecified Qualified Code(s): R07.9 - Chest pain, unspecified Disposition: Admitted As Inpatient Condition: Fair Referrals: NONE,PCP [Primary Care Provider] - Time of Disposition: 07:05 General Adult HPI - General Chief complaint: ED Chest Pain Stated complaint: CP Hx of SC, and a seizure tonight Time Seen by Provider: 04/08/19 05:53 Source: patient, family Mode of arrival: ambulatory Limitations: no limitations Nursing Notes Reviewed: Yes Vital Signs Reviewed: Yes - History of Present Illness Pain Scale: 2 - Related Data Home Medications Medication Instructions Recorded Confirmed Insulin LISPRO [HumaLOG] 0 units SQ TIDWM 11/02/17 11/02/17 Aspirin Enteric Coated [Aspirin EC] 81 mg PO DAILY 04/05/18 04/05/18 Atorvastatin Calcium [Lipitor] 80 mg PO DAILY 04/05/18 04/05/18 Clopidogrel [Plavix] 75 mg PO DAILY 04/05/18 04/05/18 Gabapentin [Gralise] 300 mg PO TID 04/05/18 04/05/18 Lisinopril [Zestril] 5 mg PO DAILY 04/05/18 04/05/18 clonazePAM [Clonazepam] 1 mg PO BID 04/05/18 04/05/18 Previous Rx's Medication Instructions Recorded HydrOXYzine Pamoate [Vistaril] 50 mg PO QID PRN #10 capsule 11/02/17 Ibuprofen [Motrin] 800 mg PO Q8HR #15 tablet 11/02/17 Cyclobenzaprine [Flexeril] 10 mg PO TID PRN #20 tablet 04/05/18 Tramadol HCl/Acetaminophen 1 each PO Q6HR PRN 3 Days #10 04/05/18 [Ultracet Tablet] tablet Ondansetron ODT [Zofran ODT] 4 mg SL Q8HR PRN #14 tab.rapdis 08/13/18 Allergies Allergy/AdvReac Type Severity Reaction Status Date / Time latex AdvReac Rash Verified 11/02/17 23:16 Past Medical History - Past Medical History Medical history: Reports: diabetes, migraine, myocardial infarction Surgical history: Reports: , other Psychiatric history: Reports: anxiety, depression [employer] history: Reports: other - Social History Smoking Status: Never smoker Smokeless Tobacco Status: No Alcohol use: Reports: none Drug use: Reports: none Physical Exam - General Limitations: no limitations General appearance: alert, in no apparent distress Course Vital Signs Temperature 97.9 F 04/08/19 06:00 Pulse Rate 86 04/08/19 06:00 Respiratory Rate 18 04/08/19 06:00 Blood Pressure 117/76 04/08/19 06:00 O2 Sat by Pulse Oximetry 98 04/08/19 06:00 Temperature 97.9 F 04/08/19 06:00 Pulse Rate 86 04/08/19 06:00 Respiratory Rate 18 04/08/19 06:00 Blood Pressure 117/76 04/08/19 06:00 O2 Sat by Pulse Oximetry 98 04/08/19 06:00 Oxygen Delivery Oxygen Delivery Room Air Medical Decision Making - Medical Records Medical records reviewed: Yes I reviewed the patient's medical records. - Lab Data Lab results reviewed: Yes I reviewed the patient's lab results. Result diagrams: 04/08/19 06:08 04/08/19 06:08 Lab Results 04/08/19 04/08/19 04/08/19 Range/Units 06:08 06:08 06:08 WBC 7.3 (4.3-11.1) K/mcL RBC 5.32 H (3.82-4.97) M/mcL Hgb 14.8 (11.5-15.4) g/dL Hct 43.7 (35.3-44.9) % MCV 82.1 L (83.0-100.0) fL MCH 27.8 L (28.0-33.3) pg MCHC 33.9 (31.6-35.5) g/dL RDW 12.7 (11.5-14.5) % Plt Count 217 (140-400) K/mcL MPV 9.5 (9.4-12.4) fL Immature Gran % 0.3 (0-4) % Seg Neutrophils % 86.3 % Lymphocytes % 8.6 % Monocytes % 4.6 % Eosinophils % 0.1 % Basophils % 0.1 % Neutrophils # 6.3 (1.6-8.9) K/mcL Lymphocytes # 0.6 (0.6-4.6) K/mcL Monocytes # 0.3 (0.0-1.3) K/mcL Eosinophils # 0.0 (0.0-0.6) K/mcL Basophils # 0.0 (0.0-0.2) K/mcL PT 10.3 (9.4-12.1) Seconds INR 0.9 APTT 29.2 (26.0-36.0) Seconds Sodium 138 (136-145) mEq/L Potassium 4.0 (3.5-5.1) mEq/L Chloride 102 (98-107) mEq/L Carbon Dioxide 24 (23-29) mEq/L BUN 15 (6-20) mg/dL Creatinine 0.59 L (0.60-1.20) mg/dL Est GFR ( Amer) > 60 (> 60) Est GFR (Non-Af Amer) > 60 (> 60) BUN/Creatinine Ratio 25 (6-26) Glucose 502 H* (70-105) mg/dL Calculated Osmolality 309 H (280-300) Calcium 9.0 (8.6-10.3) mg/dL Troponin I < 0.03 (< 0.04) ng/mL Urine Color (Yellow) Urine Clarity (Clear) Urine pH (5.0-8.0) pH Units Ur Specific [place] (1.010-1.025) Urine Protein (Neg-Trace) mg/dL Urine Glucose (UA) (Normal) mg/dL Urine Ketones (Negative) mg/dL Urine Blood (Negative) Urine Nitrite (Negative) Urine Bilirubin (Negative) Urine Urobilinogen (Normal) mg/dL Ur Leukocyte Esterase (Negative) Urine Microscopic RBC (0-3) per hpf Urine Microscopic WBC (0-3) per hpf Ur Squamous Epith Cells (None-Few) per lpf Urine Bacteria (None-Few) per hpf Hyaline Casts (None-Few) per lpf Ur Culture Indicated? (NO) Urine Test (Negative) 04/08/19 04/08/19 Range/Units 06:15 06:15 WBC (4.3-11.1) K/mcL RBC (3.82-4.97) M/mcL Hgb (11.5-15.4) g/dL Hct (35.3-44.9) % MCV (83.0-100.0) fL MCH (28.0-33.3) pg MCHC (31.6-35.5) g/dL RDW (11.5-14.5) % Plt Count (140-400) K/mcL MPV (9.4-12.4) fL Immature Gran % (0-4) % Seg Neutrophils % % Lymphocytes % % Monocytes % % Eosinophils % % Basophils % % Neutrophils # (1.6-8.9) K/mcL Lymphocytes # (0.6-4.6) K/mcL Monocytes # (0.0-1.3) K/mcL Eosinophils # (0.0-0.6) K/mcL Basophils # (0.0-0.2) K/mcL PT (9.4-12.1) Seconds INR APTT (26.0-36.0) Seconds Sodium (136-145) mEq/L Potassium (3.5-5.1) mEq/L Chloride (98-107) mEq/L Carbon Dioxide (23-29) mEq/L BUN (6-20) mg/dL Creatinine (0.60-1.20) mg/dL Est GFR ( Amer) (> 60) Est GFR (Non-Af Amer) (> 60) BUN/Creatinine Ratio (6-26) Glucose (70-105) mg/dL Calculated Osmolality (280-300) Calcium (8.6-10.3) mg/dL Troponin I (< 0.04) ng/mL Urine Color Yellow (Yellow) Urine Clarity Cloudy A (Clear) Urine pH 7.0 (5.0-8.0) pH Units Ur Specific [place] > 1.030 H (1.010-1.025) Urine Protein Negative (Neg-Trace) mg/dL Urine Glucose (UA) >=1000 H (Normal) mg/dL Urine Ketones 40 H (Negative) mg/dL Urine Blood Negative (Negative) Urine Nitrite Positive A (Negative) Urine Bilirubin Negative (Negative) Urine Urobilinogen Normal (Normal) mg/dL Ur Leukocyte Esterase Small H (Negative) Urine Microscopic RBC 0-3 (0-3) per hpf Urine Microscopic WBC TNTC H (0-3) per hpf Ur Squamous Epith Cells Many H (None-Few) per lpf Urine Bacteria Many H (None-Few) per hpf Hyaline Casts None Seen (None-Few) per lpf Ur Culture Indicated? YES A (NO) Urine Test Negative (Negative) - Radiology Data Radiology results reviewed: Yes I reviewed the patient's radiology results. Chest X-Ray 04/08/19 05:55 IMPRESSION: No evidence of acute cardiopulmonary disease. D/ / Gunner Drake MD / Gunner Drake MD Interpreting Provider: Gunner Drake MD - EKG Data EKG #1 EKG attestation: Yes I reviewed and interpreted this EKG. EKG results narrative: EKG shows normal sinus rhythm with ventricular rate of 86. No ST segment elevat ion or depression. No arrhythmia or ectopy. Normal EKG. Unchanged from prior EKG dated 08/13/2018. Attestation Statement - Attestation Attestation: I, Bijan Ravi MD, personally evaluated this patient and discussed their management with the resident physician. I reviewed the resident's note and agree with the documented findings, medical decision making, and plan of care. I reviewed the residents documentation and agree with the residents assessment and plan of care. I have personally had face to face time with the patient. I personally supervised and was present for the burgos/critical portions of the following procedures completed by the resident: EKG interpretation. 23-year-old female presents to the emergency department with a complaint that she awoke from sleep about 2:30 AM with nausea and vomiting. She then developed some mid chest pain which she describes as a pressure. The pain radiated to the left arm with some numbness and tingling in the left arm. Patient then went back to sleep and then her reports that he woke her up shortly prior to arrival having a seizure. She does have a history of seizures. She also has a history of coronary artery disease and a prior SC. She has had a cardiac catheter with 2 coronary artery stents. She is a type I diabetic. She rated the chest pain a 4 out of 10 at the worst. At present she rates it a 2 out of 10. She did not take anything at home for the chest pain. On examination patient is a well-developed well-nourished well-appearing young female in no acute distress. She is alert and oriented 3. There is no cyanosis or diaphoresis. There is some mild tenderness palpation over the medial left lower anterior chest wall. No bony crepitus or subcutaneous emphysema. Breath sounds are clear and equal bilaterally. Heart regular rate and rhythm. Abdomen soft and nontender with normal bowel sounds. No gross focal neurological deficits. EKG shows normal sinus rhythm with ventricular rate of 86. No ST segment elevation or depression. No arrhythmia or ectopy. Normal EKG. Unchanged from prior EKG dated 08/13/2018. Chest x-ray negative. Labs reviewed. Glucose 502. Troponin negative. At morning shift change patient is signed out to the oncoming dayshift team, Dr. Trujillo and Dr. Nesbitt.
[2019-04-08] MEDS: 0.9 % Sodium Chloride 1,000 ML IVC SCH ×2 (07:03→07:46)
--- NOTE | 2019-04-08 07:14 | Emergency Department Note ---
Disposition Clinical Impression: Hyperglycemia, Seizure disorder Urinary tract infection Qualifiers: Urinary tract infection type: acute cystitis Hematuria presence: without hematuria Qualified Code(s): N30.00 - Acute cystitis without hematuria Chest pain Qualifiers: Chest pain type: unspecified Qualified Code(s): R07.9 - Chest pain, unspecified Disposition: Admitted As Inpatient Condition: Fair Time of Disposition: 07:14 General Adult HPI - General Chief complaint: ED Chest Pain Stated complaint: CP Hx of NM, and a seizure tonight Time Seen by Provider: 04/08/19 05:53 Source: patient, family Mode of arrival: ambulatory Limitations: no limitations Nursing Notes Reviewed: Yes Vital Signs Reviewed: Yes - History of Present Illness Pain Scale: 2 - Related Data Home Medications Medication Instructions Recorded Confirmed Insulin LISPRO [HumaLOG] 0 units SQ TIDWM 11/02/17 04/08/19 Aspirin Enteric Coated [Aspirin EC] 81 mg PO DAILY 04/05/18 04/08/19 Gabapentin [Gralise] 300 mg PO TID 04/05/18 04/08/19 clonazePAM [Clonazepam] 1 mg PO BID 04/05/18 04/05/18 Lamictal 04/08/19 Previous Rx's Medication Instructions Recorded HydrOXYzine Pamoate [Vistaril] 50 mg PO QID PRN #10 capsule 11/02/17 Ibuprofen [Motrin] 800 mg PO Q8HR #15 tablet 11/02/17 Cyclobenzaprine [Flexeril] 10 mg PO TID PRN #20 tablet 04/05/18 Ondansetron ODT [Zofran ODT] 4 mg SL Q8HR PRN #14 tab.rapdis 08/13/18 Allergies Allergy/AdvReac Type Severity Reaction Status Date / Time latex AdvReac Rash Verified 11/02/17 23:16 Past Medical History - Past Medical History Medical history: Reports: diabetes, migraine, myocardial infarction Surgical history: Reports: , other Psychiatric history: Reports: anxiety, depression 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 - Social History Smoking Status: Never smoker Smokeless Tobacco Status: No Alcohol use: Reports: none Drug use: Reports: none Physical Exam - General Limitations: no limitations General appearance: alert, in no apparent distress Course Vital Signs Temperature 97.9 F 04/08/19 06:00 Pulse Rate 86 04/08/19 06:00 Respiratory Rate 18 04/08/19 06:00 Blood Pressure 117/76 04/08/19 06:00 O2 Sat by Pulse Oximetry 98 04/08/19 06:00 Temperature 97.9 F 04/08/19 06:00 Pulse Rate 74 04/08/19 08:28 Respiratory Rate 18 04/08/19 08:28 Blood Pressure 106/66 04/08/19 08:28 O2 Sat by Pulse Oximetry 100 04/08/19 08:28 Oxygen Delivery Oxygen Delivery Room Air Medical Decision Making - MDM Narrative Medical decision making narrative: 0757 hrs.: Patient is accepted by hospitalist. - Lab Data Result diagrams: 04/08/19 06:08 04/08/19 06:08 Lab Results 04/08/19 04/08/19 04/08/19 Range/Units 06:08 06:08 06:08 WBC 7.3 (4.3-11.1) K/mcL RBC 5.32 H (3.82-4.97) M/mcL Hgb 14.8 (11.5-15.4) g/dL Hct 43.7 (35.3-44.9) % MCV 82.1 L (83.0-100.0) fL MCH 27.8 L (28.0-33.3) pg MCHC 33.9 (31.6-35.5) g/dL RDW 12.7 (11.5-14.5) % Plt Count 217 (140-400) K/mcL MPV 9.5 (9.4-12.4) fL Immature Gran % 0.3 (0-4) % Seg Neutrophils % 86.3 % Lymphocytes % 8.6 % Monocytes % 4.6 % Eosinophils % 0.1 % Basophils % 0.1 % Neutrophils # 6.3 (1.6-8.9) K/mcL Lymphocytes # 0.6 (0.6-4.6) K/mcL Monocytes # 0.3 (0.0-1.3) K/mcL Eosinophils # 0.0 (0.0-0.6) K/mcL Basophils # 0.0 (0.0-0.2) K/mcL PT 10.3 (9.4-12.1) Seconds INR 0.9 APTT 29.2 (26.0-36.0) Seconds Sodium 138 (136-145) mEq/L Potassium 4.0 (3.5-5.1) mEq/L Chloride 102 (98-107) mEq/L Carbon Dioxide 24 (23-29) mEq/L BUN 15 (6-20) mg/dL Creatinine 0.59 L (0.60-1.20) mg/dL Est GFR ( Amer) > 60 (> 60) Est GFR (Non-Af Amer) > 60 (> 60) BUN/Creatinine Ratio 25 (6-26) Glucose 502 H* (70-105) mg/dL Calculated Osmolality 309 H (280-300) Calcium 9.0 (8.6-10.3) mg/dL Troponin I < 0.03 (< 0.04) ng/mL Urine Color (Yellow) Urine Clarity (Clear) Urine pH (5.0-8.0) pH Units Ur Specific [place] (1.010-1.025) Urine Protein (Neg-Trace) mg/dL Urine Glucose (UA) (Normal) mg/dL Urine Ketones (Negative) mg/dL Urine Blood (Negative) Urine Nitrite (Negative) Urine Bilirubin (Negative) Urine Urobilinogen (Normal) mg/dL Ur Leukocyte Esterase (Negative) Urine Microscopic RBC (0-3) per hpf Urine Microscopic WBC (0-3) per hpf Ur Squamous Epith Cells (None-Few) per lpf Urine Bacteria (None-Few) per hpf Hyaline Casts (None-Few) per lpf Ur Culture Indicated? (NO) Urine Test (Negative) 04/08/19 04/08/19 Range/Units 06:15 06:15 WBC (4.3-11.1) K/mcL RBC (3.82-4.97) M/mcL Hgb (11.5-15.4) g/dL Hct (35.3-44.9) % MCV (83.0-100.0) fL MCH (28.0-33.3) pg MCHC (31.6-35.5) g/dL RDW (11.5-14.5) % Plt Count (140-400) K/mcL MPV (9.4-12.4) fL Immature Gran % (0-4) % Seg Neutrophils % % Lymphocytes % % Monocytes % % Eosinophils % % Basophils % % Neutrophils # (1.6-8.9) K/mcL Lymphocytes # (0.6-4.6) K/mcL Monocytes # (0.0-1.3) K/mcL Eosinophils # (0.0-0.6) K/mcL Basophils # (0.0-0.2) K/mcL PT (9.4-12.1) Seconds INR APTT (26.0-36.0) Seconds Sodium (136-145) mEq/L Potassium (3.5-5.1) mEq/L Chloride (98-107) mEq/L Carbon Dioxide (23-29) mEq/L BUN (6-20) mg/dL Creatinine (0.60-1.20) mg/dL Est GFR ( Amer) (> 60) Est GFR (Non-Af Amer) (> 60) BUN/Creatinine Ratio (6-26) Glucose (70-105) mg/dL Calculated Osmolality (280-300) Calcium (8.6-10.3) mg/dL Troponin I (< 0.04) ng/mL Urine Color Yellow (Yellow) Urine Clarity Cloudy A (Clear) Urine pH 7.0 (5.0-8.0) pH Units Ur Specific [place] > 1.030 H (1.010-1.025) Urine Protein Negative (Neg-Trace) mg/dL Urine Glucose (UA) >=1000 H (Normal) mg/dL Urine Ketones 40 H (Negative) mg/dL Urine Blood Negative (Negative) Urine Nitrite Positive A (Negative) Urine Bilirubin Negative (Negative) Urine Urobilinogen Normal (Normal) mg/dL Ur Leukocyte Esterase Small H (Negative) Urine Microscopic RBC 0-3 (0-3) per hpf Urine Microscopic WBC TNTC H (0-3) per hpf Ur Squamous Epith Cells Many H (None-Few) per lpf Urine Bacteria Many H (None-Few) per hpf Hyaline Casts None Seen (None-Few) per lpf Ur Culture Indicated? YES A (NO) Urine Test Negative (Negative) Attestation Statement - Attestation Attestation: This documentation is done with the assistance of Dragon dictation. Despite efforts made to ensure accuracy, there may be inaccuracies in animal behaviorist or spelling and typographical errors. I examined this patient and my medical decision-making was reviewed with the Resident Physician. I agree with the documented findings, disposition and treatment plan as described except to the extent set forth below. Patient was seen and evaluated by Dr. Trujillo, I agree with their evaluation and management plan, I supervised care the patient's stay. Patient is a sign out from the evening ER physician Dr. Ravi at 0700 hrs. Patient had seizure some nausea some chest pain no elevation in her troponin. She is feeling better now she says that she does not want anything except for some for headache regular some acetaminophen her labs are back waiting on hospitalist call back and admission. Patient's in agreement with plan. Ask if she needed anything eat or anything else morning and she denied. Told her she needs anything to please let us know and we will get a bed for her upstairs once we speak with hospitalist. She is in agreement this plan.
[2019-04-08] MEDS ORDERED: Insulin Regular, Human 100 UNIT/ML SQ ONE (07:35)
--- NOTE | 2019-04-08 07:38 | Emergency Department Note ---
Disposition Clinical Impression: Hyperglycemia, Seizure disorder Urinary tract infection Qualifiers: Urinary tract infection type: acute cystitis Hematuria presence: without hematuria Qualified Code(s): N30.00 - Acute cystitis without hematuria Chest pain Qualifiers: Chest pain type: unspecified Qualified Code(s): R07.9 - Chest pain, unspecified Disposition: Admitted As Inpatient Condition: Fair Referrals: NONE,PCP [Primary Care Provider] - Time of Disposition: 08:02 General Adult HPI - General Chief complaint: ED Chest Pain Stated complaint: CP Hx of MS, and a seizure tonight Time Seen by Provider: 04/08/19 05:53 Source: patient, family Mode of arrival: ambulatory Limitations: no limitations Nursing Notes Reviewed: Yes Vital Signs Reviewed: Yes - History of Present Illness Pain Scale: 0 - Related Data Home Medications Medication Instructions Recorded Confirmed Insulin LISPRO [HumaLOG] 0 units SQ TIDWM 11/02/17 04/08/19 Aspirin Enteric Coated [Aspirin EC] 81 mg PO DAILY 04/05/18 04/08/19 Gabapentin [Gralise] 300 mg PO TID 04/05/18 04/08/19 clonazePAM [Clonazepam] 1 mg PO BID 04/05/18 04/05/18 Lamictal 04/08/19 Previous Rx's Medication Instructions Recorded HydrOXYzine Pamoate [Vistaril] 50 mg PO QID PRN #10 capsule 11/02/17 Ibuprofen [Motrin] 800 mg PO Q8HR #15 tablet 11/02/17 Cyclobenzaprine [Flexeril] 10 mg PO TID PRN #20 tablet 04/05/18 Ondansetron ODT [Zofran ODT] 4 mg SL Q8HR PRN #14 tab.rapdis 08/13/18 Allergies Allergy/AdvReac Type Severity Reaction Status Date / Time latex AdvReac Rash Verified 11/02/17 23:16 Past Medical History - Past Medical History Medical history: Reports: diabetes, migraine, myocardial infarction Surgical history: Reports: , other Psychiatric history: Reports: anxiety, depression 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 In short patient is a known diabetic with a history of an MS in October 2017 who was on Plavix and aspirin but has since stopped since it was greater than a year. Does have a history of seizures as well has not been taking any of her medication in the past month. She does take gabapentin as well as clonazepam for her seizures. This morning she woke up with left-sided chest pain and some nausea. She ended up going back to sleep and then subsequently had a seizure in bed. Does not states it lasted around 3 minutes. She was brought to the emergency department. Was still complaining of left-sided chest pain. EKG shows no signs of acute ischemia. Troponin is negative. Patient did refuse nitroglycerin however her chest pain did relieve with the aspirin. It went from 87 down to a 2. She was noted to have a glucose rhythm 500 without an anion gap at this time. She states she has not been taking her insulin as she is supposed to. She is also noted to have a urinary tract infection. We will be admitting to the hospital for ACS rule out as well as uncontrolled diabetes and urinary tract infection. - Consultations Consultation #1: Dr Rowe accepted Pt in stable condition. Time: 08:03 Vital Signs Temperature 97.9 F 04/08/19 06:00 Pulse Rate 86 04/08/19 06:00 Respiratory Rate 18 04/08/19 06:00 Blood Pressure 117/76 04/08/19 06:00 O2 Sat by Pulse Oximetry 98 04/08/19 06:00 Temperature 97.9 F 04/08/19 06:00 Pulse Rate 82 04/08/19 07:30 Respiratory Rate 18 04/08/19 07:30 Blood Pressure 109/68 04/08/19 07:30 O2 Sat by Pulse Oximetry 100 04/08/19 07:30 Oxygen Delivery Oxygen Delivery Room Air Medical Decision Making - Lab Data Result diagrams: 04/08/19 06:08 04/08/19 06:08 Lab Results 04/08/19 04/08/19 04/08/19 Range/Units 06:08 06:08 06:08 WBC 7.3 (4.3-11.1) K/mcL RBC 5.32 H (3.82-4.97) M/mcL Hgb 14.8 (11.5-15.4) g/dL Hct 43.7 (35.3-44.9) % MCV 82.1 L (83.0-100.0) fL MCH 27.8 L (28.0-33.3) pg MCHC 33.9 (31.6-35.5) g/dL RDW 12.7 (11.5-14.5) % Plt Count 217 (140-400) K/mcL MPV 9.5 (9.4-12.4) fL Immature Gran % 0.3 (0-4) % Seg Neutrophils % 86.3 % Lymphocytes % 8.6 % Monocytes % 4.6 % Eosinophils % 0.1 % Basophils % 0.1 % Neutrophils # 6.3 (1.6-8.9) K/mcL Lymphocytes # 0.6 (0.6-4.6) K/mcL Monocytes # 0.3 (0.0-1.3) K/mcL Eosinophils # 0.0 (0.0-0.6) K/mcL Basophils # 0.0 (0.0-0.2) K/mcL PT 10.3 (9.4-12.1) Seconds INR 0.9 APTT 29.2 (26.0-36.0) Seconds Sodium 138 (136-145) mEq/L Potassium 4.0 (3.5-5.1) mEq/L Chloride 102 (98-107) mEq/L Carbon Dioxide 24 (23-29) mEq/L BUN 15 (6-20) mg/dL Creatinine 0.59 L (0.60-1.20) mg/dL Est GFR ( Amer) > 60 (> 60) Est GFR (Non-Af Amer) > 60 (> 60) BUN/Creatinine Ratio 25 (6-26) Glucose 502 H* (70-105) mg/dL Calculated Osmolality 309 H (280-300) Calcium 9.0 (8.6-10.3) mg/dL Troponin I < 0.03 (< 0.04) ng/mL Urine Color (Yellow) Urine Clarity (Clear) Urine pH (5.0-8.0) pH Units Ur Specific [place] (1.010-1.025) Urine Protein (Neg-Trace) mg/dL Urine Glucose (UA) (Normal) mg/dL Urine Ketones (Negative) mg/dL Urine Blood (Negative) Urine Nitrite (Negative) Urine Bilirubin (Negative) Urine Urobilinogen (Normal) mg/dL Ur Leukocyte Esterase (Negative) Urine Microscopic RBC (0-3) per hpf Urine Microscopic WBC (0-3) per hpf Ur Squamous Epith Cells (None-Few) per lpf Urine Bacteria (None-Few) per hpf Hyaline Casts (None-Few) per lpf Ur Culture Indicated? (NO) Urine Test (Negative) 04/08/19 04/08/19 Range/Units 06:15 06:15 WBC (4.3-11.1) K/mcL RBC (3.82-4.97) M/mcL Hgb (11.5-15.4) g/dL Hct (35.3-44.9) % MCV (83.0-100.0) fL MCH (28.0-33.3) pg MCHC (31.6-35.5) g/dL RDW (11.5-14.5) % Plt Count (140-400) K/mcL MPV (9.4-12.4) fL Immature Gran % (0-4) % Seg Neutrophils % % Lymphocytes % % Monocytes % % Eosinophils % % Basophils % % Neutrophils # (1.6-8.9) K/mcL Lymphocytes # (0.6-4.6) K/mcL Monocytes # (0.0-1.3) K/mcL Eosinophils # (0.0-0.6) K/mcL Basophils # (0.0-0.2) K/mcL PT (9.4-12.1) Seconds INR APTT (26.0-36.0) Seconds Sodium (136-145) mEq/L Potassium (3.5-5.1) mEq/L Chloride (98-107) mEq/L Carbon Dioxide (23-29) mEq/L BUN (6-20) mg/dL Creatinine (0.60-1.20) mg/dL Est GFR ( Amer) (> 60) Est GFR (Non-Af Amer) (> 60) BUN/Creatinine Ratio (6-26) Glucose (70-105) mg/dL Calculated Osmolality (280-300) Calcium (8.6-10.3) mg/dL Troponin I (< 0.04) ng/mL Urine Color Yellow (Yellow) Urine Clarity Cloudy A (Clear) Urine pH 7.0 (5.0-8.0) pH Units Ur Specific [place] > 1.030 H (1.010-1.025) Urine Protein Negative (Neg-Trace) mg/dL Urine Glucose (UA) >=1000 H (Normal) mg/dL Urine Ketones 40 H (Negative) mg/dL Urine Blood Negative (Negative) Urine Nitrite Positive A (Negative) Urine Bilirubin Negative (Negative) Urine Urobilinogen Normal (Normal) mg/dL Ur Leukocyte Esterase Small H (Negative) Urine Microscopic RBC 0-3 (0-3) per hpf Urine Microscopic WBC TNTC H (0-3) per hpf Ur Squamous Epith Cells Many H (None-Few) per lpf Urine Bacteria Many H (None-Few) per hpf Hyaline Casts None Seen (None-Few) per lpf Ur Culture Indicated? YES A (NO) Urine Test Negative (Negative)
[2019-04-08] MEDS ORDERED: Naloxone 0.4 MG/ML INJ IVP PRN (07:56)
[2019-04-08] MEDS ORDERED: *HR* Metoprolol 5 MG/5 ML VIAL IVP PRN (07:58)
[2019-04-08] MEDS ORDERED: Ondansetron 4 MG/2 ML VIAL IVP PRN (07:58)
[2019-04-08] MEDS ORDERED: Perflutren Lipid Microsphere 1.3 ML in 0.9 % Sodium Chloride 8.7 ML IVP ONE (10:01)
[2019-04-08] MEDS: Insulin LISPRO 300 UNITS/3 ML VIAL SQ SCH ×3 (10:35→18:28)
--- NOTE | 2019-04-08 12:59 | Internal Med History&Physical ---
Date of Encounter: 04/08/19 Time of Encounter: 12:35 Internal Medicine - H&P: HPI History of present illness: Ms. Weiss is a 23 year old female with history of coronary artery disease with NH one year ago with stent, DM, seizure disorder presented for onset of substernal chest pain, nausea, and left arm numbness and tingling. Patient states pain lasts for one hour. No alleviating or exacerbating factors. She admits to anxiety as well and episode of shortness of breath. She denies fevers /chills, vomiting, diarrhea, abdominal pain, diaphoresis, palpitations. In the ED initial troponin was negative. An EKG showed no acute ST/T wave changes. Her urinalysis was consistent with UTI. She has been non-compliant with diabetes and seizure medications in the past year due to trouble establishing with Cardiology and Endocrinology. Family history for both mother and father diagnosed with coronary artery disease in their 20s. Past Med Surg Social Fam HX - Past Medical History Medical history: asthma, diabetes, migraine, myocardial infarction, seizures Additional medical history: Anxiety. Panic attacks. Psychiatric history: anxiety, depression - Past Surgical History Surgical History: , other Additional surgical history: heart cath with stent, tonsillectomy - Social History Smoking Status: Former smoker Smokeless Tobacco Status: No Alcohol use: none Drug use: none - Family History Mother Living Status: Still Living Hx Family Cardiac Disorders: Yes (NH) Hx Family Respiratory Disorders: No Hx Family Cancer: No Hx Family GI Disorders: No Hx Family Endocrine Disorder: Yes (DIABETIC) Hx Family Neuromuscular Disorders: No Hx Family Neurologic Disorders: No Hx Family HEENT Disorders: No Hx Family Autoimmune Disorders: No Hx Family Medical Disorders: Yes (blot clotting disorder) Father Living Status: Still Living Hx Family Cardiac Disorders: Yes Hx Family Respiratory Disorders: Yes Hx Family Endocrine Disorder: Yes Internal Medicine - H&P: Meds HydrOXYzine Pamoate [Vistaril] 50 mg PO QID PRN #10 capsule 11/02/17 [Rx] Ibuprofen [Motrin] 800 mg PO Q8HR #15 tablet 11/02/17 [Rx] Insulin LISPRO [HumaLOG] 0 units SQ TIDWM 11/02/17 [History] Aspirin Enteric Coated [Aspirin EC] 81 mg PO DAILY 04/05/18 [History] Cyclobenzaprine [Flexeril] 10 mg PO TID PRN #20 tablet 04/05/18 [Rx] Gabapentin [Gralise] 300 mg PO TID 04/05/18 [History] clonazePAM [Clonazepam] 1 mg PO BID 04/05/18 [History] Ondansetron ODT [Zofran ODT] 4 mg SL Q8HR PRN #14 tab.rapdis 08/13/18 [Rx] Lamictal 04/08/19 [History] Allergy/AdvReac Type Severity Reaction Status Date / Time latex AdvReac Rash Verified 11/02/17 23:16 All Systems PM: A 10-system review of systems was performed and is negative for pertinent findings except as documented above in the HPI. - Constitutional Constitutional: no chills, no fever(s), no night sweats - EENT Eyes: no change in vision, no discharge, no pain, no photophobia Ears: no ear discharge, no ear pain, no tinnitus Nose, mouth and throat: no dysphagia, no nasal discharge, no neck pain, no sore throat - Cardiovascular Cardiovascular ROS IM: chest pain, dyspnea, no diaphoresis, no lightheadedness, no palpitations, no syncope - Respiratory Respiratory: dyspnea, no cough, no wheezing, no excessive phlegm production - Gastrointestinal Gastrointestinal: nausea, no abdominal pain, no diarrhea, no hematemesis, no hematochezia, no melena, no vomiting - Genitourinary Genitourinary: dysuria, no change in urinary stream, no flank pain, no hematuria - Musculoskeletal Musculoskeletal ROS IM: no numbness, no tingling - Integumentary Integumentary IM: no rash, no unusual bruising - Neurological Neurological ROS: no confusion, no convulsions, no focal weakness, no numbness, no tingling, no tremor(s) - Hematologic/Lymphatic Hematologic/Lymphatic: no easy bruising - Constitutional Vitals: Temp Pulse Resp BP Pulse Ox 97.4 F L 79 15 93/57 100 04/08/19 11:00 04/08/19 11:00 04/08/19 11:00 04/08/19 11:00 04/08/19 11:00 General appearance: Present: A&O X 3, no acute distress Exam: . - Head Head exam: Present: atraumatic, normocephalic - Eye Eye exam: Present: PERRL, conjuntiva pink, sclera anicteric Pupils: Present: PERRL - Neck Neck exam general surgery: Present: supple, trachea midline. Absent: lymphadenopathy - Respiratory Respiratory exam: Present: CTAB. Absent: accessory muscle use, rales, rhonchi, wheezes - Cardiovascular Cardiovascular exam: Present: RRR, +S1, +S2. Absent: diastolic murmur, gallop, rubs, systolic murmur - GI/Abdominal GI/Abdominal exam: Present: normal bowel sounds, soft, no peritoneal signs. Absent: distended, tenderness - Extremities Exam Extremities exam: Present: warm, radial pulses palpable and symmetrical. Absent: calf tenderness, cyanotic, pedal edema - Neurological Exam Neurological exam: Present: CN II-XII intact, oriented X3, no focal deficits. Absent: pronater drift, facial droop, speech deficit - Skin Skin exam: Present: dry, intact Internal Med - H&P Results - Labs CBC & Chem 7: 04/08/19 06:08 04/08/19 06:08 Labs: Short CBC 04/08/19 Range/Units 06:08 WBC 7.3 (4.3-11.1) K/mcL Hgb 14.8 (11.5-15.4) g/dL Hct 43.7 (35.3-44.9) % Plt Count 217 (140-400) K/mcL Neutrophils # 6.3 (1.6-8.9) K/mcL BMP 04/08/19 06:08 Sodium 138 Potassium 4.0 Chloride 102 Carbon Dioxide 24 BUN 15 Creatinine 0.59 L Glucose 502 H* Calcium 9.0 Cardiac Enzymes 04/08/19 Range/Units 06:08 Troponin I < 0.03 (< 0.04) ng/mL Urine 04/08/19 Range/Units 06:15 Urine Color Yellow (Yellow) Urine Clarity Cloudy A (Clear) Urine pH 7.0 (5.0-8.0) pH Units Ur Specific [place] > 1.030 H (1.010-1.025) Urine Protein Negative (Neg-Trace) mg/dL Urine Glucose (UA) >=1000 H (Normal) mg/dL - Impressions ITS Impressions Chest X-Ray 04/08/19 05:55 IMPRESSION: No evidence of acute cardiopulmonary disease. D/ / Gunner Drake MD / Gunner Drake MD Interpreting Provider: Gunner Drake MD Echocardiogram 04/08/19 07:58 Impressions: LVEF 60%. Normal LV chamber size, wall thickness and function. Normal left ventricular diastolic function. Normal right ventricular structure and function. No evidence of pulmonary hypertension. No significant valvular dysfunction. Left Ventricular Wall Motion: Rest Echo Findings All wall segments showed normal motion. Findings: Study Quality * Technically sub-optimal due to poor echocardiographic windows. ECG Findings * Normal sinus rhythm. Left Ventricle * LVEF 60%. * Normal LV chamber size, wall thickness and function. * Normal left ventricular diastolic function. Right Ventricle * Normal right ventricular structure and function. Left Atrium * Normal left atrial size. Right Atrium * Normal right atrial size. Interatrial Septum * Interatrial septum not well evaluated. Aortic Valve * Aortic valve not well visualized. * No aortic regurgitation. * No aortic stenosis. Mitral Valve * Normal mitral valve structure and function. * No mitral regurgitation. * No mitral stenosis. Tricuspid Valve * Normal tricuspid valve structure and function. * Trace tricuspid regurgitation. * No evidence of pulmonary hypertension. Pulmonic Valve * Normal pulmonic valve structure and function. * Trace pulmonic regurgitation. Aorta * Normally sized aortic root. Pericardium * The pericardium appears normal. IVC * Normal IVC dimensions and inspiratory collapse. Pulmonary Artery * Normal visualized portions of the main pulmonary artery. - Assessment and Plan (1) Chest pain Current Visit: Yes Status: Acute Assessment and plan: Possible etiologies include anxiety attack vs ACS. Given significant history of CAD over one year ago with family history and non-compliance with diabetes, patient is high risk. - Continue to cycle troponin - Echocardiogram - Records from [facility] request - Cardiology consultation. Qualifiers: Chest pain type: unspecified Qualified Code(s): R07.9 - Chest pain, unsp ecified (2) Coronary artery disease Current Visit: Yes Status: Acute Assessment and plan: Records from [facility] requested. Qualifiers: Coronary Disease-Associated Artery/Lesion type: [place] artery [place] vs. transplanted heart: [place] heart Associated angina: angina presence unspecified Qualified Code(s): I25.10 - Atherosclerotic heart disease of [place] coronary artery without angina pectoris (3) Seizure disorder Current Visit: Yes Status: Acute Assessment and plan: Patient unable to get seizure medication in past month. Resume home medications. (4) Urinary tract infection Current Visit: Yes Status: Acute Assessment and plan: [place] Qualifiers: Urinary tract infection type: acute cystitis Hematuria presence: without hematuria Qualified Code(s): N30.00 - Acute cystitis without hematuria (5) Anxiety Current Visit: No Status: Acute - Time Spent With Patient Total time spent is greater than 50% in coordination of care (as documented) at patient's floor/unit and/or counseling patient:
--- NOTE | 2019-04-08 13:58 | Cardiology Consult Note ---
Date of Encounter: 04/08/19 Time of Encounter: 13:45 Assessment and Plan (1) Chest pain Current Visit: Yes Status: Acute Per Cardiology: Atypical chest pain that occurred at rest. Currently chest pain-free. Troponin negative. Continue cycle troponins. Echo showed preserved EF. Impressions: LVEF 60%. Normal LV chamber size, wall thickness and function. Normal left ventricular diastolic function. Normal right ventricular structure and function. No evidence of pulmonary hypertension. No significant valvular dysfunction. Left Ventricular Wall Motion: Rest Echo Findings All wall segments showed normal motion. Consider checking tox screen. Consider test. Will await medical records and cycle troponins. We will make nothing to eat after midnight and consider possible stress test tomorrow. We will discuss review with Dr. Maza. Qualifiers: Chest pain type: unspecified Qualified Code(s): R07.9 - Chest pain, unspecified (2) Coronary artery disease Current Visit: Yes Status: Chronic Per Cardiology: Per patient reported AK one year ago in transfer to [facility] from [place] and underwent catheterization with stenting. Does not follow with cardiology. We will initiate aspirin for now. We will attempt to obtain medical records from [facility] regarding potential catheterization. We will consider addition of statin if appropriate. Consider addition of beta mireya, however currently systolic blood pressure in the 90s. Qualifiers: Coronary Disease-Associated Artery/Lesion type: [place] artery [place] vs. transplanted heart: [place] heart Associated angina: angina presence un specified Qualified Code(s): I25.10 - Atherosclerotic heart disease of [place] coronary artery without angina pectoris (3) Seizure disorder Current Visit: Yes Status: Acute Per Cardiology: Apparent history of seizures. Currently not taking medications. Reported seizure-like activity last night as well. Consider neurology consult. (4) Urinary tract infection Current Visit: Yes Status: Acute Per Cardiology: Management per primary service. Qualifiers: Urinary tract infection type: acute cystitis Hematuria presence: without hematuria Qualified Code(s): N30.00 - Acute cystitis without hematuria Discussion w patient/family: The assessment and plan as outlined above was discussed with the patient and/or family members who expressed understanding and agreement. All questions were answered. Thank you for involving us in the care of your patient. Please call with any questions. History of Present Illness Consult date: 04/08/19 Requesting physician: Loco Rowe Consult reason: CP Chief complaint: CP History of present illness: Ms. Weiss is a 23 year old female with a relevant past medical history of type 1 diabetes mellitus on insulin, CAD with reported AK and stenting one year ago at [facility], and seizure disorder-- currently not compliant with medication regimen for seizures. Cardiology consult for chest pain. Patient seen today and currently chest pain-free. Reports awakened at 2:30 the morning to midsternal chest pressure/heaviness with radiation to her left arm and left hand numbness. She also reports positive nausea with vomiting. Total episode lasted about 3 hours total. She reports thereafter developed seizure witnessed by her boyfriend. She reports occasional midsternal chest heaviness with exertional activities. Reports has not followed up with cardiology since AK. Denies any recent cardiac testing since catheterization. She denies any active infectious process. Does report recent increase in frequency and painful urination. Past Med Surg Social Fam HX - Past Medical History Attestation: Yes The following information was validated with the patient. Source: patient, old records reviewed, obtained from family Medical history: asthma, diabetes, migraine, myocardial infarction, seizures Additional medical history: Anxiety. Panic attacks. Psychiatric history: anxiety, depression - Past Surgical History Surgical History: , other Additional surgical history: heart cath with stent, tonsillectomy - Social History Smoking Status: Former smoker Smokeless Tobacco Status: No Alcohol use: none Drug use: none - Family History Mother Living Status: Still Living Hx Family Cardiac Disorders: Yes (AK) Hx Family Respiratory Disorders: No Hx Family Cancer: No Hx Family GI Disorders: No Hx Family Endocrine Disorder: Yes (DIABETIC) Hx Family Neuromuscular Disorders: No Hx Family Neurologic Disorders: No Hx Family HEENT Disorders: No Hx Family Autoimmune Disorders: No Hx Family Medical Disorders: Yes (blot clotting disorder) Father Living Status: Still Living Hx Family Cardiac Disorders: Yes Hx Family Respiratory Disorders: Yes Hx Family Endocrine Disorder: Yes Medications and Allergies HydrOXYzine Pamoate [Vistaril] 50 mg PO QID PRN #10 capsule 11/02/17 [Rx] Ibuprofen [Motrin] 800 mg PO Q8HR #15 tablet 11/02/17 [Rx] Insulin LISPRO [HumaLOG] 0 units SQ TIDWM 11/02/17 [History] Aspirin Enteric Coated [Aspirin EC] 81 mg PO DAILY 07/31/18 [History] Cyclobenzaprine [Flexeril] 10 mg PO TID PRN #20 tablet 04/05/18 [Rx] Gabapentin [Gralise] 300 mg PO TID 04/05/18 [History] clonazePAM [Clonazepam] 1 mg PO BID 04/05/18 [History] Ondansetron ODT [Zofran ODT] 4 mg SL Q8HR PRN #14 tab.rapdis 08/13/18 [Rx] Lamictal 04/08/19 [History] Allergy/AdvReac Type Severity Reaction Status Date / Time latex AdvReac Rash Verified 11/02/17 23:16 All Systems Review: The remainder of the systems were reviewed and are negative - Cardiovascular Cardiovascular: as per HPI, chest pain at rest, chest pain with exertion, dyspnea at rest - Gastrointestinal Gastrointestinal: nausea Physical Examination Vital Signs, Last 4 Hours Temp Pulse Resp BP Pulse Ox 04/08/19 11:00 97.4 F L 79 15 93/57 100 General: Conversant, No Apparent Distress HEENT: Atraumatic, Normocephaly, Mucus Membranes Moist Neck: No JVD, Normal carotid pulses Cardiac: Reg Rate and Rhythm, Normal S1 and S2, No Murmur Lungs: Normal Breath Sounds, No Wheeze, Rales, Rhonchi Neuro: Alert and responsive, No focal deficits noted Abdomen: Soft, Non-Tender Skin: No rashes noted on visualized skin Musculoskeletal: No Chest Wall Tenderness Extremities: No Clubbing, No Cyanosis, No Edema, Normal Pulses Results 04/08/19 06:08 04/08/19 06:08 Lab Results Laboratory Tests 04/08/19 04/08/19 04/08/19 06:08 06:08 06:08 Hgb 14.8 Hct 43.7 INR 0.9 Creatinine 0.59 L Est GFR (Non-Af Amer) > 60 Glucose 502 H* Troponin I < 0.03 Urine Nitrite Ur Culture Indicated? 04/08/19 06:15 Hgb Hct INR Creatinine Est GFR (Non-Af Amer) Glucose Troponin I Urine Nitrite Positive A Ur Culture Indicated? YES A ITS Impressions Chest X-Ray 04/08/19 05:55 IMPRESSION: No evidence of acute cardiopulmonary disease. D/ / Gunner Drake MD / Gunner Drake MD Interpreting Provider: Gunner Drake MD Echocardiogram 04/08/19 07:58 Impressions: LVEF 60%. Normal LV chamber size, wall thickness and function. Normal left ventricular diastolic function. Normal right ventricular structure and function. No evidence of pulmonary hypertension. No significant valvular dysfunction. Left Ventricular Wall Motion: Rest Echo Findings All wall segments showed normal motion. Findings: Study Quality * Technically sub-optimal due to poor echocardiographic windows. ECG Findings * Normal sinus rhythm. Left Ventricle * LVEF 60%. * Normal LV chamber size, wall thickness and function. * Normal left ventricular diastolic function. Right Ventricle * Normal right ventricular structure and function. Left Atrium * Normal left atrial size. Right Atrium * Normal right atrial size. Interatrial Septum * Interatrial septum not well evaluated. Aortic Valve * Aortic valve not well visualized. * No aortic regurgitation. * No aortic stenosis. Mitral Valve * Normal mitral valve structure and function. * No mitral regurgitation. * No mitral stenosis. Tricuspid Valve * Normal tricuspid valve structure and function. * Trace tricuspid regurgitation. * No evidence of pulmonary hypertension. Pulmonic Valve * Normal pulmonic valve structure and function. * Trace pulmonic regurgitation. Aorta * Normally sized aortic root. Pericardium * The pericardium appears normal. IVC * Normal IVC dimensions and inspiratory collapse. Pulmonary Artery * Normal visualized portions of the main pulmonary artery. Active Medications Aspirin (Aspirin Ec) 81 mg PO DAILY [facility] Stop: 10/09/19 09:01 Heparin Sodium (Porcine) (Heparin) 5,000 unit SQ Q12HCO [facility]; Protocol Stop: 10/08/19 18:01 Ceftriaxone Sodium 1,000 mg/ (Sterile Water) 10 mls @ 600 mls/hr IVP DAILY [facility] Stop: 10/09/19 09:01 Insulin Human Lispro (Humalog) 0 units SQ HS [facility]; Protocol Stop: 10/08/19 21:01 Insulin Human Lispro (Humalog) 0 units SQ TIDWM [facility]; Protocol Stop: 10/08/19 08:01 Last Admin: 04/08/19 12:56 Dose: 8 units Documented by: Metoprolol Tartrate (Lopressor) 5 mg IVP Q6HR PRN PRN Reason: SEE COMMENTS Stop: 10/08/19 07:59 Naloxone HCl (Narcan) 0.4 mg IVP Q2MPRN PRN PRN Reason: SEE COMMENTS Stop: 10/08/19 07:57 Nitroglycerin (Nitroglycerin) 0.4 mg SL Q5MPRN PRN PRN Reason: Chest Pain Stop: 10/08/19 05:56 Nitroglycerin (Nitroglycerin) 0.4 mg SL Q5MIN PRN PRN Reason: Chest Pain Stop: 10/08/19 07:59 Ondansetron HCl (Zofran) 4 mg IVP Q8HR PRN; Protocol PRN Reason: Nausea And Vomiting Stop: 10/08/19 07:59 - Imaging and Cardiology Echo: report reviewed - EKG Interpretation EKG results cardiology: personally reviewed, normal ECG, sinus rhythm, no diagnostic ischemia Consult Discharge Plan - Plan Referrals: NONE,PCP [Primary Care Provider] -
[2019-04-08] MEDS ORDERED: Isovue-370 500 ML BOTTLE IVP ONE (16:31)
[2019-04-08] MEDS: Ringers Solution, Lactated 1,000 ML IVC SCH (18:27)
[2019-04-08] MEDS: *HR* Heparin 5,000 UNIT/ML VIAL SQ SCH (18:35)
[2019-04-08] MEDS ORDERED: Insulin LISPRO 300 UNITS/3 ML VIAL SQ SCH (21:00)
[2019-04-08 22:14] LABS: Amphetamine Screen,Urine Negative ng/mL (Cutoff=1000); Barbiturate Screen,Urine Negative ng/mL (Cutoff=200); Benzodiazepines Screen,Urine Negative ng/mL (Cutoff=200); Cannabinoid Screen,Urine Negative ng/mL (Cutoff = 50); Cocaine Screen,Urine Negative ng/mL (Cutoff= 300); Opiate Screen,Urine Negative ng/mL (Cutoff=300); Phencyclidine Screen,Urine Negative ng/mL (Cutoff=25)
[2019-04-09] MEDS: Ringers Solution, Lactated 1,000 ML IVC SCH (04:54)
[2019-04-09] MEDS: *HR* Heparin 5,000 UNIT/ML VIAL SQ SCH (04:54)
[2019-04-09] MEDS: Insulin LISPRO 300 UNITS/3 ML VIAL SQ SCH ×2 (08:21→12:13)
[2019-04-09] MEDS ORDERED: Acetaminophen 325 MG TABLET PO PRN (08:36)
[2019-04-09] MEDS ORDERED: Aspirin Enteric Coated 81 MG Tablet PO SCH (09:00)
[2019-04-09] MEDS ORDERED: cefTRIAXone 1,000 MG in Water for inj. (sterile) 10 ML IVP SCH (09:00)
--- NOTE | 2019-04-09 09:21 | Cardiology Progress Note ---
Date of Encounter: 04/09/19 Time of Encounter: 08:35 Assessment and Plan (1) Chest pain Current Visit: Yes Status: Acute Per Cardiology: Atypical chest pain that occurred at rest. Currently chest pain-free. Troponins negative x 2. Continue cycle troponins. Echo: Impressions: LVEF 60%. Normal LV chamber size, wall thickness and function. Normal left ventricular diastolic function. Normal right ventricular structure and function. No evidence of pulmonary hypertension. No significant valvular dysfunction. Left Ventricular Wall Motion: Rest Echo Findings All wall segments showed normal motion. Tox screen and test negative. No medical records received. Discussed and reviewed with Dr. Maza, plan for standard stress test today. Qualifiers: Chest pain type: unspecified Qualified Code(s): R07.9 - Chest pain, unspecified (2) Coronary artery disease Current Visit: Yes Status: Chronic Per Cardiology: Per patient reported [place] one year ago in transfer to [place] from [place] and underwent catheterization with stenting. Awaiting medical records. On aspirin. Qualifiers: Coronary Disease-Associated Artery/Lesion type: [place] artery [place] vs. transplanted heart: [place] heart Associated angina: angina presence unspecified Qualified Code(s): I25.10 - Atherosclerotic heart disease of [place] coronary artery without angina pectoris (3) Seizure disorder Current Visit: Yes Status: Acute Per Cardiology: Apparent history of seizures. Consider neurology consult. (4) Urinary tract infection Current Visit: Yes Status: Acute Per Cardiology: Management per primary service. Qualifiers: Urinary tract infection type: acute cystitis Hematuria presence: without h ematuria Qualified Code(s): N30.00 - Acute cystitis without hematuria Discussion w patient/family: The assessment and plan as outlined above was discussed with the patient and/or family members who expressed understanding and agreement. All questions were answered. Thank you for involving us in the care of your patient. Please call with any questions. Subjective Principal diagnosis: CP Interval history: No complaints overnight. CP free. Objective Vital Signs, Last 4 Hours Temp Pulse Resp BP Pulse Ox 04/09/19 07:49 98.1 F 66 16 92/61 98 General: Conversant, No Apparent Distress HEENT: Atraumatic, Normocephaly, Mucus Membranes Moist Neck: No JVD, Normal carotid pulses Cardiac: Reg Rate and Rhythm, Normal S1 and S2, No Murmur Lungs: Normal Breath Sounds, No Wheeze, Rales, Rhonchi Neuro: Alert and responsive, No focal deficits noted Abdomen: Soft, Non-Tender Skin: No rashes noted on visualized skin Musculoskeletal: No Chest Wall Tenderness Extremities: No Clubbing, No Cyanosis, No Edema, Normal Pulses Results 04/08/19 06:08 04/08/19 06:08 Lab Results Laboratory Tests 04/08/19 04/08/19 04/08/19 06:08 06:15 06:15 Troponin I < 0.03 Urine Nitrite Positive A Ur Culture Indicated? YES A Urine Test Negative 04/08/19 14:10 Troponin I < 0.03 Urine Nitrite Ur Culture Indicated? Urine Test Impressions Echocardiogram 04/08/19 07:58 Impressions: LVEF 60%. Normal LV chamber size, wall thickness and function. Normal left ventricular diastolic function. Normal right ventricular structure and function. No evidence of pulmonary hypertension. No significant valvular dysfunction. Left Ventricular Wall Motion: Rest Echo Findings All wall segments showed normal motion. Findings: Study Quality * Technically sub-optimal due to poor echocardiographic windows. ECG Findings * Normal sinus rhythm. Left Ventricle * LVEF 60%. * Normal LV chamber size, wall thickness and function. * Normal left ventricular diastolic function. Right Ventricle * Normal right ventricular structure and function. Left Atrium * Normal left atrial size. Right Atrium * Normal right atrial size. Interatrial Septum * Interatrial septum not well evaluated. Aortic Valve * Aortic valve not well visualized. * No aortic regurgitation. * No aortic stenosis. Mitral Valve * Normal mitral valve structure and function. * No mitral regurgitation. * No mitral stenosis. Tricuspid Valve * Normal tricuspid valve structure and function. * Trace tricuspid regurgitation. * No evidence of pulmonary hypertension. Pulmonic Valve * Normal pulmonic valve structure and function. * Trace pulmonic regurgitation. Aorta * Normally sized aortic root. Pericardium * The pericardium appears normal. IVC * Normal IVC dimensions and inspiratory collapse. Pulmonary Artery * Normal visualized portions of the main pulmonary artery. Chest CTA 04/08/19 16:31 IMPRESSION: No evidence of pulmonary embolism or acute pulmonary abnormality. D/ / Venkatesh Sessions / Venkatesh Sessions Interpreting Provider: Venkatesh Sessions Active Medications Acetaminophen (Tylenol) 650 mg PO Q6HR PRN PRN Reason: Pain Stop: 10/09/19 08:37 Aspirin (Aspirin Ec) 81 mg PO DAILY [facility] Stop: 10/09/19 09:01 Last Admin: 04/09/19 08:22 Dose: 81 mg Documented by: Heparin Sodium (Porcine) (Heparin) 5,000 unit SQ Q12HCO [facility]; Protocol Stop: 10/08/19 18:01 Last Admin: 04/09/19 04:54 Dose: 5,000 unit Documented by: Ceftriaxone Sodium 1,000 mg/ (Sterile Water) 10 mls @ 600 mls/hr IVP DAILY [facility] Stop: 10/09/19 09:01 Last Admin: 04/09/19 08:22 Dose: 600 mls/hr Documented by: Lactated Ringer's (Lactated Ringers) 1,000 mls @ 100 mls/hr IVC .Q10H [facility] Stop: 04/09/19 12:44 Last Admin: 04/09/19 04:54 Dose: 100 mls/hr Documented by: Insulin Human Lispro (Humalog) 0 units SQ HS [facility]; Protocol Stop: 10/08/19 21:01 Last Admin: 04/08/19 22:01 Dose: 3 units Documented by: Insulin Human Lispro (Humalog) 0 units SQ TIDWM [facility]; Protocol Stop: 10/08/19 08:01 Last Admin: 04/09/19 08:21 Dose: 10 units Documented by: Metoprolol Tartrate (Lopressor) 5 mg IVP Q6HR PRN PRN Reason: SEE COMMENTS Stop: 10/08/19 07:59 Naloxone HCl (Narcan) 0.4 mg IVP Q2MPRN PRN PRN Reason: SEE COMMENTS Stop: 10/08/19 07:57 Nitroglycerin (Nitroglycerin) 0.4 mg SL Q5MPRN PRN PRN Reason: Chest Pain Stop: 10/08/19 05:56 Nitroglycerin (Nitroglycerin) 0.4 mg SL Q5MIN PRN PRN Reason: Chest Pain Stop: 10/08/19 07:59 Ondansetron HCl (Zofran) 4 mg IVP Q8HR PRN; Protocol PRN Reason: Nausea And Vomiting Stop: 10/08/19 07:59 - Imaging and Cardiology Stress Test: pending Echo: report reviewed Consult Discharge Plan - Plan Referrals: NONE,PCP [Primary Care Provider] -
[2019-04-09 10:39] VITALS: BP 107/74
[2019-04-09 11:50] LABS: Basophils % 0.3 %; Hematocrit 39.1 % (35.3-44.9); Hemoglobin 13.1 g/dL (11.5-15.4); Immature Granulocytes % 0.3 % (0-4); Immature Platelets 2.5 % (1.1-6.1); Mean Corpuscular HGB Conc 33.5 g/dL (31.6-35.5); Mean Corpuscular Hemoglobin 27.6 pg (28.0-33.3); Mean Corpuscular Volume 82.3 fL (83.0-100.0); Mean Platelet Volume 9.9 fL (9.4-12.4); Monocytes # 0.2 K/mcL (0.0-1.3); Monocytes % 7.5 %; Neutrophils # 1.8 K/mcL (1.6-8.9); Platelet Count 178 K/mcL (140-400); Red Blood Count 4.75 M/mcL (3.82-4.97); Segmented Neutrophils % 58.9 %; White Blood Count 3.1 K/mcL (4.3-11.1)
[2019-04-09 11:54] LABS: BUN/Creatinine Ratio 17 (6-26); Blood Urea Nitrogen 8 mg/dL (6-20); Calcium 8.5 mg/dL (8.6-10.3); Carbon Dioxide 26 mEq/L (23-29); Chloride 107 mEq/L (98-107); Glucose 194 mg/dL (70-105); Osmolality,Calculated 292 (280-300); Potassium 3.6 mEq/L (3.5-5.1); Sodium 139 mEq/L (136-145); eGFR For African Americans > 60 (> 60); eGFR For Non-African Americans > 60 (> 60)
[2019-04-09 12:01] LABS: Estimated Average Glucose 335 mg/dl
--- NOTE | 2019-04-09 13:30 | Discharge Summary ---
Orders not resulted at time of discharge: Pending orders 04/08/19 06:15 Culture,Urine [RM] Stat Date of Encounter: 04/09/19 Time of Encounter: 13:27 - Discharge Diagnosis (1) Anxiety Priority: Secondary Status: Acute (2) Urinary tract infection Priority: Primary Status: Acute Qualifiers: Urinary tract infection type: acute cystitis Hematuria presence: without hematuria Qualified Code(s): N30.00 - Acute cystitis without hematuria (3) Chest pain Priority: Primary Status: Acute Qualifiers: Chest pain type: unspecified Qualified Code(s): R07.9 - Chest pain, unspecified (4) Seizure disorder Priority: Primary Status: Acute (5) Coronary artery disease Priority: Primary Status: Chronic Qualifiers: Coronary Disease-Associated Artery/Lesion type: [place] artery [place] vs. transplanted heart: [place] heart Associated angina: angina presence unspecified Qualified Code(s): I25.10 - Atherosclerotic heart disease of [place] coronary artery without angina pectoris Hospital course: Ms. Weiss is a 23 year old female with PMH CAD, diabetes and seizure disorder presented to [facility] on 04/08/2019 with complaints of chest pain. She was hospitalized for further workup or treatment. Hospitalization included negative serial troponin, EKG without acute ST changes. TTE showed EF 60% and normal systolic function, no significant valvular dysfunction. Patient underwent a treadmill stress test which was negative for inducible ischemia however target heart rate was not achieved. Patient was evaluated by cardiology who recommended a Lexiscan stress test however patient refused. Said she would prefer to follow-up outpatient. Discussed with cardiology and given young age and known CAD patient would have to leave AGAINST MEDICAL ADVICE. Patient was aware of risk of leaving including cardiac arrest; she verbalized understanding and accepted the risk. She was given an Rx for statin and Keflex for UTI. Patient was advised to return to ER if chest pain/SOB recurs. - Time Spent with Patient Total time spent providing and/or coordinating discharge services: - Discharge Medications Prescriptions: New cephALEXin [Keflex] 500 mg PO QID #15 capsule Atorvastatin [Lipitor] 40 mg PO HS #30 tablet Continued Lamictal Insulin LISPRO [HumaLOG] 0 units SQ TIDWM HydrOXYzine Pamoate [Vistaril] 50 mg PO QID PRN #10 capsule PRN Reason: Anxiety Ibuprofen [Motrin] 800 mg PO Q8HR #15 tablet Gabapentin [Gralise] 300 mg PO TID clonazePAM [Clonazepam] 1 mg PO BID Aspirin Enteric Coated [Aspirin EC] 81 mg PO DAILY Cyclobenzaprine [Flexeril] 10 mg PO TID PRN #20 tablet PRN Reason: Pain Ondansetron ODT [Zofran ODT] 4 mg SL Q8HR PRN #14 tab.rapdis PRN Reason: Nausea Home Medications: HydrOXYzine Pamoate [Vistaril] 50 mg PO QID PRN #10 capsule 11/02/17 [Rx] Ibuprofen [Motrin] 800 mg PO Q8HR #15 tablet 11/02/17 [Rx] Insulin LISPRO [HumaLOG] 0 units SQ TIDWM 11/02/17 [History] Aspirin Enteric Coated [Aspirin EC] 81 mg PO DAILY 04/05/18 [History] Cyclobenzaprine [Flexeril] 10 mg PO TID PRN #20 tablet 04/05/18 [Rx] Gabapentin [Gralise] 300 mg PO TID 04/05/18 [History] clonazePAM [Clonazepam] 1 mg PO BID 04/05/18 [History] Ondansetron ODT [Zofran ODT] 4 mg SL Q8HR PRN #14 tab.rapdis 08/13/18 [Rx] Lamictal 04/08/19 [History] Atorvastatin [Lipitor] 40 mg PO HS #30 tablet 04/09/19 [Rx] cephALEXin [Keflex] 500 mg PO QID #15 capsule 04/09/19 [Rx] Allergies/Adverse Reactions: Allergy/AdvReac Type Severity Reaction Status Date / Time latex AdvReac Rash Verified 11/02/17 23:16 Date of admission: 04/08/19 08:18 Primary care physician: PCP NONE Consults: 04/08/19 13:00 Consult to Cardiology [CONS] Routine Comment: Consulting Provider: Cardiology [place] Reason for Consult: chest pain, CAD Call Completed: Yes Discharging clinician: Roselyn Bush Anticipated date of discharge: 04/09/19 - Constitutional Vitals: Temp Pulse Resp BP Pulse Ox 97.6 F 89 16 107/74 99 04/09/19 10:37 04/09/19 10:37 04/09/19 10:37 04/09/19 10:37 04/09/19 10:37 General appearance: Present: A&O X 3, no acute distress Exam: . - Head Head exam: Present: atraumatic, normocephalic - Eye Eye exam: Present: PERRL, conjuntiva pink, sclera anicteric Pupils: Present: PERRL - Neck Neck exam general surgery: Present: supple, trachea midline. Absent: lymphaden opathy - Respiratory Respiratory exam: Present: CTAB. Absent: accessory muscle use, rales, rhonchi, wheezes - Cardiovascular Cardiovascular exam: Present: RRR, +S1, +S2. Absent: diastolic murmur, gallop, rubs, systolic murmur - GI/Abdominal GI/Abdominal exam: Present: normal bowel sounds, soft, no peritoneal signs. Absent: distended, tenderness - Extremities Exam Extremities exam: Present: warm, radial pulses palpable and symmetrical. A bsent: calf tenderness, cyanotic, pedal edema - Neurological Exam Neurological exam: Present: CN II-XII intact, oriented X3, no focal deficits. Absent: pronater drift, facial droop, speech deficit - Skin Skin exam: Present: dry, intact - Patient Status Disposition: Left Against Medical Advice Condition: Good Functional capacity at discharge: independent ambulation Overall status at discharge: patient is back to baseline - Discharge Instructions Follow Up With: NONE,PCP [Primary Care Provider] - (Please establish care with your primary care physician and follow-up as soon as possible) Forms: ED Satisfaction Letter - Diet and Activity Activity: ambulate only with your walker Diet: low fat, low cholesterol
--- NOTE | 2019-04-09 13:39 | Event Note ---
Date of Encounter: 04/09/19 Time of Encounter: 13:30 - Cardiology Event Note Discussed and reviewed with Dr. Jensen, stress test did not achieve target HR, recs for Low level Lexiscan nuclear stress test in am. Patient has decided to leave AMA. Agreeable to asa and statin and outpatient follow-up. Discussed with primary service.
--- NOTE | 2019-04-12 13:30 | Electrocardiograph Report ---
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
== END 2019-04-09 14:10 | disposition left against medical advice (07) ==
LOC: 3BNU 05:51 → EMEROOARM 05:51 → 3BNU 09:00
PROVIDERS: ADMIT Student in an Organized Health Care Education/Training Program; ATTEND Student in an Organized Health Care Education/Training Program

== ENCOUNTER 2019-06-20 07:52 | Inpatient (IN) ==
[~2019-06-20 07:52] MED LIST changes: +CeFAZolin Syr 2,000MG/20 ML 2,000 MG/20 ML SYRINGE IVPB ONE; -Ondansetron ODT 4 MG TAB.RAPDIS SL STA; -SUMAtriptan succinate 25 MG TABLET PO STA
[2019-06-20] MEDS: Nitroglycerin 0.4 MG TAB.SUBL SL PRN ×2 (08:21→08:26)
[2019-06-20] MEDS ORDERED: Ondansetron 4 MG/2 ML VIAL IVP ONE (08:23)
[2019-06-20 08:32] LABS: Basophils % 0.3 %; Eosinophils % 0.6 %; Hematocrit 38.9 % (35.3-44.9); Hemoglobin 13.5 g/dL (11.5-15.4); Immature Granulocytes % 0.3 % (0-4); Lymphocytes # 1.7 K/mcL (0.6-4.6); Lymphocytes % 26.1 %; Mean Corpuscular HGB Conc 34.7 g/dL (31.6-35.5); Mean Corpuscular Hemoglobin 27.6 pg (28.0-33.3); Mean Corpuscular Volume 79.6 fL (83.0-100.0); Mean Platelet Volume 9.5 fL (9.4-12.4); Monocytes # 0.4 K/mcL (0.0-1.3); Neutrophils # 4.4 K/mcL (1.6-8.9); Platelet Count 245 K/mcL (140-400); Red Blood Count 4.89 M/mcL (3.82-4.97); Red Cell Distribution Width 12.9 % (11.5-14.5); Segmented Neutrophils % 66.7 %; White Blood Count 6.7 K/mcL (4.3-11.1)
[2019-06-20 08:39] LABS: Bilirubin,Urine Negative (Negative); Blood,Urine Negative (Negative); Clarity,Urine Clear (Clear); Color,Urine Yellow (Yellow); Glucose,Urine (UA) >=1000 mg/dL (Normal); Ketones,Urine 40 mg/dL (Negative); Leukocyte Esterase,Urine Negative (Negative); Nitrite,Urine Negative (Negative); Protein,Urine Negative (Neg-Trace); Specific Gravity,Urine > 1.030 (1.010-1.025); Urobilinogen,Urine Normal (Normal)
[2019-06-20 08:39] LABS: VBG HCO3 26 mEq/L (21-27); VBG PCO2 42 mmHg (41-51); VBG PH 7.39 pH Units (7.32-7.42); VBG PO2 103 mmHg (25-50)
[2019-06-20 08:40] LABS: INR 0.9; Prothrombin Time 10.4 Seconds (9.4-12.1)
[2019-06-20 08:42] LABS: Activated Partial Thrombo Time 29.5 Seconds (26.0-36.0)
[2019-06-20 08:45] LABS: Amphetamine Screen,Urine Negative ng/mL (Cutoff=1000); Barbiturate Screen,Urine Negative ng/mL (Cutoff=200); Benzodiazepines Screen,Urine Negative ng/mL (Cutoff=200); Cannabinoid Screen,Urine Negative ng/mL (Cutoff = 50); Cocaine Screen,Urine Negative ng/mL (Cutoff= 300); Opiate Screen,Urine Negative ng/mL (Cutoff=300); Phencyclidine Screen,Urine Negative ng/mL (Cutoff=25)
[2019-06-20 08:48] LABS: Magnesium 1.7 mg/dL (1.6-2.6); Phosphorous 3.5 mg/dL (2.7-4.5)
[2019-06-20 08:49] LABS: Albumin/Globulin Ratio 1.5 (1.1-2.2); Bilirubin,Direct 0.1 mg/dL (0.0-0.2); Bilirubin,Indirect 0.3 mg/dL (0.0-1.2); Bilirubin,Total 0.4 mg/dL (0.3-1.0); Globulin 2.7 g/dL (2.4-3.5); Total Protein 6.7 g/dL (6.4-8.9)
[2019-06-20 08:59] LABS: BUN/Creatinine Ratio 17 (6-26); Blood Urea Nitrogen 9 mg/dL (6-20); Calcium 9.2 mg/dL (8.6-10.3); Carbon Dioxide 23 mEq/L (23-29); Chloride 100 mEq/L (98-107); Glucose 490 mg/dL (70-105); Osmolality,Calculated 298 (280-300); Potassium 3.8 mEq/L (3.5-5.1); Sodium 134 mEq/L (136-145); Troponin I 0.16 ng/mL (< 0.04); eGFR For African Americans > 60 (> 60); eGFR For Non-African Americans > 60 (> 60)
[2019-06-20 09:25] LABS: Estimated Average Glucose 332 mg/dl
[2019-06-20] MEDS ORDERED: Insulin Regular, Human 100 UNIT/ML SQ ONE (09:28)
[2019-06-20] MEDS ORDERED: 0.9 % Sodium Chloride 1,000 ML IVC ONE (09:28)
[2019-06-20] MEDS ORDERED: *HR* Heparin 5,000 UNIT/ML VIAL IVP ONE (09:40)
[2019-06-20] MEDS ORDERED: *HR* Heparin 5,000 UNIT/ML VIAL IVP PRN ×2 (09:40)
[2019-06-20] MEDS ORDERED: Heparin 25,000 UNIT/250 ML D5W 25,000 UNIT/250 ML IV.SOLN IVC SCH (09:45)
[2019-06-20] MEDS ORDERED: 0.9 % Sodium Chloride 1,000 ML ONE ×2 (09:57→10:17)
[2019-06-20] MEDS ORDERED: Heparin 1,000 UNITS/500 mL 500 ML ONE (09:57)
[2019-06-20] MEDS ORDERED: *HR* Heparin 10,000 UNIT/10 ML VIAL ONE (09:57)
[2019-06-20] MEDS ORDERED: ISOVUE-370 200 ML INFUS..BTL ONE (09:57)
[2019-06-20] MEDS ORDERED: Nitroglycerin 1,000 MCG/10 ML VIAL IV ONE (09:58)
[2019-06-20] MEDS ORDERED: *HR* FentaNYL (PF) 100 MCG/2 ML VIAL ONE (10:05)
[2019-06-20] MEDS ORDERED: *HR* Midazolam HCl 2 MG/2 ML VIAL ONE (10:05)
[2019-06-20] MEDS ORDERED: Naloxone 0.4 MG/ML INJ IVP PRN ×2 (10:20→13:45)
[2019-06-20] MEDS ORDERED: D5% in Water 1,000 ML IVC PRN ×2 (10:22→13:45)
[2019-06-20] MEDS ORDERED: Dextrose Gel 15 GM/37.5 ML TUBE PO PRN ×4 (10:22→13:45)
[2019-06-20] MEDS ORDERED: *HR* Dextrose 50 % in Water (Syg) 50 ML SYRINGE IVP PRN ×2 (10:22→13:45)
[2019-06-20] MEDS: Ondansetron 4 MG/2 ML VIAL IVP PRN (11:20)
[2019-06-20] MEDS ORDERED: Insulin LISPRO 300 UNITS/3 ML VIAL SQ SCH ×3 (11:30→21:00)
[2019-06-20] MEDS ORDERED: *HR* LORazepam 2 MG/ML VIAL IVP PRN (13:45)
[2019-06-20] MEDS ORDERED: Perflutren Lipid Microsphere 1.3 ML in 0.9 % Sodium Chloride 8.7 ML IVP ONE (14:02)
[2019-06-20] MEDS ORDERED: Perflutren Lipid Microsphere 2 ML VIAL ONE (14:04)
[2019-06-20 14:09] LABS: Chol/HDL Ratio 4.7 (0-4.9); Cholesterol 177 mg/dL (< 200); HDL Cholesterol 38 mg/dL (40-59); LDL Cholesterol,Calculated 106 mg/dL (0-99); Triglycerides 166 mg/dL (< 150)
[2019-06-20 14:51] LABS: Alanine Aminotransferase 17 Units/L (7-52); Albumin 3.6 g/dL (3.5-5.7); Albumin/Globulin Ratio 1.5 (1.1-2.2); Alkaline Phosphatase 97 Units/L (34-104); Aspartate Amino Transferase 14 Units/L (13-39); BUN/Creatinine Ratio 11 (6-26); Bilirubin,Total 0.3 mg/dL (0.3-1.0); Blood Urea Nitrogen 7 mg/dL (6-20); Calcium 8.6 mg/dL (8.6-10.3); Carbon Dioxide 25 mEq/L (23-29); Chloride 104 mEq/L (98-107); Globulin 2.4 g/dL (2.4-3.5); Glucose 322 mg/dL (70-105); Magnesium 1.6 mg/dL (1.6-2.6); Osmolality,Calculated 292 (280-300); Potassium 3.9 mEq/L (3.5-5.1); Sodium 136 mEq/L (136-145); eGFR For African Americans > 60 (> 60); eGFR For Non-African Americans > 60 (> 60)
[2019-06-20] MEDS ORDERED: Gabapentin 300 MG CAPSULE PO SCH (15:00)
[2019-06-20] MEDS: 0.9 % Sodium Chloride 1,000 ML IVC SCH (16:02)
[2019-06-20] MEDS: lamoTRIgine 25 MG TABLET PO SCH (20:11)
[2019-06-20] MEDS: clonazePAM 1 MG TABLET PO SCH (20:11)
[2019-06-20] MEDS: Insulin LISPRO 300 UNITS/3 ML VIAL SQ SCH (20:11)
[2019-06-20] MEDS: Insulin DETEMIR 100 UNIT/ML X5UNITS SQ SCH (20:11)
[2019-06-20] MEDS: Acetaminophen 325 MG TABLET PO PRN (20:26)
[2019-06-20] MEDS ORDERED: valACYclovir 500 MG TABLET PO SCH (21:00)
[2019-06-21] MEDS: 0.9 % Sodium Chloride 1,000 ML IVC SCH ×4 (02:00→23:54)
[2019-06-21 05:18] LABS: Hematocrit 35.4 % (35.3-44.9); Mean Corpuscular HGB Conc 33.6 g/dL (31.6-35.5); Mean Corpuscular Hemoglobin 27.5 pg (28.0-33.3); Mean Corpuscular Volume 81.9 fL (83.0-100.0); Mean Platelet Volume 9.5 fL (9.4-12.4); Platelet Count 197 K/mcL (140-400); Red Blood Count 4.32 M/mcL (3.82-4.97); Red Cell Distribution Width 13.1 % (11.5-14.5); White Blood Count 5.7 K/mcL (4.3-11.1)
[2019-06-21 05:19] LABS: Hemoglobin 11.9 g/dL (11.5-15.4)
[2019-06-21 05:39] LABS: Alanine Aminotransferase 15 Units/L (7-52); Albumin 3.2 g/dL (3.5-5.7); Albumin/Globulin Ratio 1.5 (1.1-2.2); Alkaline Phosphatase 75 Units/L (34-104); Aspartate Amino Transferase 14 Units/L (13-39); BUN/Creatinine Ratio 22 (6-26); Bilirubin,Total 0.3 mg/dL (0.3-1.0); Blood Urea Nitrogen 11 mg/dL (6-20); Calcium 8.3 mg/dL (8.6-10.3); Carbon Dioxide 24 mEq/L (23-29); Chloride 108 mEq/L (98-107); Globulin 2.1 g/dL (2.4-3.5); Glucose 321 mg/dL (70-105); Magnesium 1.6 mg/dL (1.6-2.6); Osmolality,Calculated 294 (280-300); Potassium 3.8 mEq/L (3.5-5.1); Sodium 136 mEq/L (136-145); Total Protein 5.3 g/dL (6.4-8.9); eGFR For African Americans > 60 (> 60); eGFR For Non-African Americans > 60 (> 60)
[2019-06-21] MEDS ORDERED: Dextrose 50 % in Water (Vial) 30 ML, Sodium Bicarbonate 20 MEQ, Potassium Chloride 15 M... TH ONE (06:00)
[2019-06-21] MEDS ORDERED: Dextrose 50 % in Water (Vial) 30 ML, Sodium Bicarbonate 20 MEQ, Lidocaine 1% 5 ML, Insu... TH ONE ×3 (06:00)
[2019-06-21] MEDS ORDERED: Norepinephrine 4 MG in 0.9 % Sodium Chloride 250 ML IVC PRN (06:00)
[2019-06-21] MEDS ORDERED: Heparin 15,000 UNIT in 0.9 % Sodium Chloride 500 ML IV ONE (06:00)
[2019-06-21] MEDS ORDERED: Insulin Human Regular 100 UNIT in 0.9 % Sodium Chloride 100 ML IV PRN (06:00)
[2019-06-21] MEDS ORDERED: Aspirin 81 MG TAB.CHEW PO ONE (06:00)
[2019-06-21] MEDS: clonazePAM 1 MG TABLET PO SCH (07:46)
[2019-06-21] MEDS: lamoTRIgine 25 MG TABLET PO SCH (07:46)
[2019-06-21] MEDS: Insulin LISPRO 300 UNITS/3 ML VIAL SQ SCH ×4 (07:54→20:47)
[2019-06-21] MEDS: Insulin DETEMIR 100 UNIT/ML X5UNITS SQ SCH ×2 (07:57→20:46)
[2019-06-21] MEDS ORDERED: *HR* Heparin 5,000 UNIT/ML VIAL IVP PRN ×2 (08:33)
[2019-06-21] MEDS ORDERED: *HR* Heparin 5,000 UNIT/ML VIAL IVP ONE (08:33)
[2019-06-21] MEDS ORDERED: Insulin DETEMIR 100 UNIT/ML X5UNITS SQ ONE ×2 (08:35→13:36)
[2019-06-21] MEDS ORDERED: levETIRAcetam 1,000 MG in 0.9 % Sodium Chloride 100 ML IVPB ONE (10:46)
[2019-06-21] MEDS: Acyclovir 200 MG CAPSULE PO SCH (16:57)
[2019-06-21] MEDS: levETIRAcetam 250 MG TABLET PO SCH (16:58)
[2019-06-21] MEDS: Heparin 25,000 UNIT/250 ML D5W 25,000 UNIT/250 ML IV.SOLN IVC SCH (16:58)
[2019-06-21] MEDS: Chlorhexidine Rinse 15 ML MOUTHWASH MM SCH (20:46)
[2019-06-21] MEDS: Acetaminophen 325 MG TABLET PO PRN (20:46)
[2019-06-22] MEDS: levETIRAcetam 250 MG TABLET PO SCH ×2 (05:59→19:11)
[2019-06-22] MEDS: Chlorhexidine Rinse 15 ML MOUTHWASH MM SCH ×2 (05:59→19:47)
[2019-06-22] MEDS ORDERED: CeFAZolin Syr 2,000MG/20 ML 2,000 MG/20 ML SYRINGE IVPB ONE ×2 (06:00→07:30)
[2019-06-22] MEDS ORDERED: Nitroglycerin 25 MG/250 ML INFUS..BTL IVC ONE (06:48)
[2019-06-22] MEDS ORDERED: Lidocaine 2% Syringe 100 MG/5 ML ONE (06:50)
[2019-06-22] MEDS ORDERED: Tranexamic Acid 1,000 MG/10 ML VIAL ONE (06:50)
[2019-06-22] MEDS ORDERED: *HR* Propofol 200 MG/20 ML VIAL IVP ONE (06:51)
[2019-06-22] MEDS ORDERED: *HR* Midazolam HCl 5 MG/5 ML VIAL IVP ONE (06:52)
[2019-06-22] MEDS ORDERED: *HR* FentaNYL (PF) 1,000 MCG/20 ML VIAL ONE (06:52)
[2019-06-22] MEDS ORDERED: *HR* Rocuronium Bromide 50 MG/5 ML VIAL ONE ×2 (07:00→09:19)
[2019-06-22] MEDS ORDERED: Dexamethasone 4 MG/ML VIAL ONE (07:00)
[2019-06-22] MEDS ORDERED: *HR* PHENYLEPHRINE 1,000 MCG/10 ML SYRINGE IVP ONE (07:00)
[2019-06-22] MEDS ORDERED: Famotidine 20 MG/2 ML VIAL ONE (07:07)
[2019-06-22] MEDS ORDERED: *HR* Magnesium Sulfate 1 GM/2 ML VIAL ONE (07:08)
[2019-06-22] MEDS ORDERED: Heparin 15,000 UNIT in 0.9 % Sodium Chloride 500 ML IV ONE (07:45)
[2019-06-22] MEDS ORDERED: Dextrose 50 % in Water (Vial) 30 ML, Sodium Bicarbonate 20 MEQ, Lidocaine 1% 5 ML, Insu... TH ONE ×3 (07:45)
[2019-06-22] MEDS ORDERED: Norepinephrine 4 MG in 0.9 % Sodium Chloride 250 ML IVC PRN (07:45)
[2019-06-22] MEDS ORDERED: Dextrose 50 % in Water (Vial) 30 ML, Sodium Bicarbonate 20 MEQ, Potassium Chloride 15 M... TH ONE (07:45)
[2019-06-22] MEDS ORDERED: Insulin Human Regular 100 UNIT in 0.9 % Sodium Chloride 100 ML IV PRN (07:45)
[2019-06-22 08:36] LABS: ABG Base Excess 2 mEq/L (-2 to 3); ABG Chloride 110 mEq/L (98-107); ABG Glucose 146 mg/dL (60-95); ABG HCO3 27 mEq/L (21-27); ABG Ionized Calcium 1.23 mmol/L (1.15-1.35); ABG Oxygen Saturation 100 % (95-98); ABG PCO2 41 mmHg (35-45); ABG PH 7.42 pH Units (7.32-7.45); ABG PO2 293 mmHg (85-104); ABG TCO2 28 mEq/L (20-26)
[2019-06-22] MEDS ORDERED: *HR* Heparin 10,000 UNIT/10 ML VIAL IV ONE (09:01)
[2019-06-22] MEDS ORDERED: Protamine Sulfate 250 MG/25 ML VIAL IVP ONE (09:10)
[2019-06-22] MEDS ORDERED: *HR* FentaNYL (PF) 250 MCG/5 ML VIAL ONE (09:29)
[2019-06-22 09:37] LABS: ABG Base Excess -1 mEq/L (-2 to 3); ABG Chloride 110 mEq/L (98-107); ABG Glucose 124 mg/dL (60-95); ABG HCO3 23 mEq/L (21-27); ABG Ionized Calcium 1.13 mmol/L (1.15-1.35); ABG Oxygen Saturation 100 % (95-98); ABG PCO2 31 mmHg (35-45); ABG PH 7.46 pH Units (7.32-7.45); ABG PO2 424 mmHg (85-104); ABG TCO2 24 mEq/L (20-26)
[2019-06-22] MEDS ORDERED: Ondansetron 4 MG/2 ML VIAL ONE (09:59)
[2019-06-22 10:03] LABS: ABG Base Excess 1 mEq/L (-2 to 3); ABG Chloride 109 mEq/L (98-107); ABG Glucose 116 mg/dL (60-95); ABG HCO3 25 mEq/L (21-27); ABG Oxygen Saturation 100 % (95-98); ABG PCO2 38 mmHg (35-45); ABG PH 7.43 pH Units (7.32-7.45); ABG PO2 354 mmHg (85-104); ABG TCO2 26 mEq/L (20-26)
[2019-06-22] MEDS ORDERED: Albumin Human 5% 50.0 GM/1,000 ML VIAL ONE (10:22)
[2019-06-22] MEDS ORDERED: Insulin Regular, Human 100 UNIT/ML IV PRN (10:42)
[2019-06-22] MEDS ORDERED: Potassium Chloride 40 MEQ/200 ML BAG IVPB PRN (10:42)
[2019-06-22] MEDS ORDERED: *HR* Dextrose 50 % in Water (Syg) 50 ML SYRINGE IVP PRN (10:42)
[2019-06-22] MEDS ORDERED: Acetaminophen 650 MG RECTAL SUPP RC PRN (10:47)
[2019-06-22] MEDS ORDERED: Calcium Gluconate 1gm/50mL 1 GM/50 ML BAG IVPB PRN ×2 (10:47→12:00)
[2019-06-22 10:55] LABS: ABG Base Excess 2 mEq/L (-2 to 3); ABG HCO3 24 mEq/L (21-27); ABG Oxygen Saturation 100 % (95-98); ABG PCO2 32 mmHg (35-45); ABG PO2 191 mmHg (85-104); ABG TCO2 25 mEq/L (20-26); Blood Gas Modality AF; Blood Gas VT 480 cc
[2019-06-22 11:06] LABS: Basophils % 0.2 %; Eosinophils % 0.3 %; Hematocrit 32.3 % (35.3-44.9); Hemoglobin 11.2 g/dL (11.5-15.4); Immature Granulocytes % 0.8 % (0-4); Lymphocytes # 1.2 K/mcL (0.6-4.6); Lymphocytes % 18.2 %; Mean Corpuscular HGB Conc 34.7 g/dL (31.6-35.5); Mean Corpuscular Hemoglobin 28.1 pg (28.0-33.3); Mean Corpuscular Volume 81.2 fL (83.0-100.0); Mean Platelet Volume 9.2 fL (9.4-12.4); Monocytes # 0.2 K/mcL (0.0-1.3); Monocytes % 2.3 %; Neutrophils # 5.1 K/mcL (1.6-8.9); Platelet Count 165 K/mcL (140-400); Red Blood Count 3.98 M/mcL (3.82-4.97); Red Cell Distribution Width 13.1 % (11.5-14.5); Segmented Neutrophils % 78.2 %
[2019-06-22 11:11] LABS: White Blood Count 6.5 K/mcL (4.3-11.1)
[2019-06-22 11:15] LABS: INR 1.1; Prothrombin Time 12.1 Seconds (9.4-12.1)
[2019-06-22 11:17] LABS: Activated Partial Thrombo Time 27.4 Seconds (26.0-36.0)
[2019-06-22 11:20] LABS: BUN/Creatinine Ratio 19 (6-26); Blood Urea Nitrogen 8 mg/dL (6-20); Calcium 7.8 mg/dL (8.6-10.3); Carbon Dioxide 27 mEq/L (23-29); Chloride 110 mEq/L (98-107); Glucose 128 mg/dL (70-105); Magnesium 2.1 mg/dL (1.6-2.6); Osmolality,Calculated 288 (280-300); Potassium 3.6 mEq/L (3.5-5.1); Sodium 139 mEq/L (136-145); eGFR For African Americans > 60 (> 60); eGFR For Non-African Americans > 60 (> 60)
[2019-06-22] MEDS: *HR* OxyCODONE/APAP 5/325 TABLET PO PRN ×3 (11:38→22:20)
[2019-06-22] MEDS: *HR* FentaNYL (PF) 100 MCG/2 ML VIAL IVP PRN ×2 (11:38→19:47)
[2019-06-22] MEDS: 0.9 % Sodium Chloride w KCl 20 MEQ/1,000 ML MLS IVC SCH (11:39)
[2019-06-22] MEDS: Acyclovir 200 MG CAPSULE PO SCH (11:39)
[2019-06-22] MEDS: Insulin DETEMIR 100 UNIT/ML X5UNITS SQ SCH ×2 (11:39→19:12)
[2019-06-22] MEDS: Insulin LISPRO 300 UNITS/3 ML VIAL SQ SCH ×4 (11:40→19:12)
[2019-06-22] MEDS: Insulin Human Regular 100 UNIT in 0.9 % Sodium Chloride 100 ML IVC SCH ×2 (11:40→12:15)
[2019-06-22] MEDS: niCARdipine 20 MG/200 ML MLS IVC SCH ×4 (11:40→23:05)
[2019-06-22] MEDS: Heparin 25,000 UNIT/250 ML D5W 25,000 UNIT/250 ML IV.SOLN IVC SCH (11:40)
[2019-06-22] MEDS: Ketorolac 15 MG/ML VIAL IVP SCH ×3 (11:55→23:03)
[2019-06-22] MEDS: Pantoprazole 40 MG VIAL IVP SCH (11:56)
[2019-06-22] MEDS: Nitroglycerin 25 MG/250 ML INFUS..BTL IVC SCH ×2 (12:21→19:13)
[2019-06-22] MEDS: Norepinephrine 4 MG in 0.9 % Sodium Chloride 250 ML IVC SCH (12:21)
[2019-06-22] MEDS: *HR* HYDROcodone/Acet 5/325 mg TABLET PO PRN (13:20)
[2019-06-22 14:49] LABS: ABG Base Excess 2 mEq/L (-2 to 3); ABG HCO3 28 mEq/L (21-27); ABG Oxygen Saturation 100 % (95-98); ABG PCO2 51 mmHg (35-45); ABG PH 7.35 pH Units (7.32-7.45); ABG PO2 176 mmHg (85-104); ABG TCO2 30 mEq/L (20-26)
[2019-06-22] MEDS: Ondansetron 4 MG/2 ML VIAL IVP PRN (18:06)
[2019-06-22] MEDS: Furosemide 20 MG/2 ML VIAL IVP SCH (18:21)
[2019-06-23] MEDS: *HR* FentaNYL (PF) 100 MCG/2 ML VIAL IVP PRN ×2 (01:38→07:52)
[2019-06-23] MEDS: *HR* OxyCODONE/APAP 5/325 TABLET PO PRN ×3 (03:03→19:33)
[2019-06-23 03:13] LABS: Basophils % 0.1 %; Hematocrit 29.9 % (35.3-44.9); Hemoglobin 10.7 g/dL (11.5-15.4); Immature Granulocytes % 0.3 % (0-4); Lymphocytes # 0.9 K/mcL (0.6-4.6); Lymphocytes % 11.6 %; Mean Corpuscular HGB Conc 35.8 g/dL (31.6-35.5); Mean Corpuscular Hemoglobin 28.9 pg (28.0-33.3); Mean Corpuscular Volume 80.8 fL (83.0-100.0); Mean Platelet Volume 9.3 fL (9.4-12.4); Monocytes # 0.5 K/mcL (0.0-1.3); Neutrophils # 6.2 K/mcL (1.6-8.9); Platelet Count 156 K/mcL (140-400); Red Cell Distribution Width 12.9 % (11.5-14.5); White Blood Count 7.7 K/mcL (4.3-11.1)
[2019-06-23 03:20] LABS: INR 1.2; Prothrombin Time 13.4 Seconds (9.4-12.1)
[2019-06-23 04:03] LABS: BUN/Creatinine Ratio 20 (6-26); Blood Urea Nitrogen 8 mg/dL (6-20); Calcium 8.4 mg/dL (8.6-10.3); Carbon Dioxide 26 mEq/L (23-29); Chloride 108 mEq/L (98-107); Glucose 134 mg/dL (70-105); Magnesium 1.9 mg/dL (1.6-2.6); Osmolality,Calculated 288 (280-300); Potassium 4.1 mEq/L (3.5-5.1); Sodium 139 mEq/L (136-145); eGFR For African Americans > 60 (> 60); eGFR For Non-African Americans > 60 (> 60)
[2019-06-23] MEDS: levETIRAcetam 250 MG TABLET PO SCH ×2 (05:01→17:40)
[2019-06-23] MEDS: Ketorolac 15 MG/ML VIAL IVP SCH ×3 (05:01→17:45)
[2019-06-23] MEDS: *HR* HYDROcodone/Acet 5/325 mg TABLET PO PRN (05:30)
[2019-06-23] MEDS: Insulin LISPRO 300 UNITS/3 ML VIAL SQ SCH ×5 (07:33→20:41)
[2019-06-23] MEDS: 0.9 % Sodium Chloride w KCl 20 MEQ/1,000 ML MLS IVC SCH (07:33)
[2019-06-23] MEDS: Heparin 25,000 UNIT/250 ML D5W 25,000 UNIT/250 ML IV.SOLN IVC SCH (07:33)
[2019-06-23] MEDS: Insulin DETEMIR 100 UNIT/ML X5UNITS SQ SCH (07:34)
[2019-06-23] MEDS: niCARdipine 20 MG/200 ML MLS IVC SCH ×2 (07:35→08:03)
[2019-06-23] MEDS: Norepinephrine 4 MG in 0.9 % Sodium Chloride 250 ML IVC SCH (07:35)
[2019-06-23] MEDS: Nitroglycerin 25 MG/250 ML INFUS..BTL IVC SCH (07:36)
[2019-06-23] MEDS: Chlorhexidine Rinse 15 ML MOUTHWASH MM SCH ×2 (08:02→20:41)
[2019-06-23] MEDS: Acyclovir 200 MG CAPSULE PO SCH (08:02)
[2019-06-23] MEDS: Pantoprazole 40 MG VIAL IVP SCH (08:02)
[2019-06-23] MEDS: Furosemide 20 MG/2 ML VIAL IVP SCH ×2 (08:02→17:41)
[2019-06-23] MEDS: 0.9 % Sodium Chloride 1,000 ML IVC SCH (08:04)
[2019-06-23] MEDS ORDERED: Aspirin Enteric Coated 81 MG Tablet PO SCH (09:00)
[2019-06-23] MEDS ORDERED: Dextrose Gel 15 GM/37.5 ML TUBE PO PRN ×6 (09:08→09:33)
[2019-06-23] MEDS ORDERED: D5% in Water 1,000 ML IVC PRN ×2 (09:08→09:33)
[2019-06-23] MEDS ORDERED: *HR* Dextrose 50 % in Water (Syg) 50 ML SYRINGE IVP PRN ×2 (09:08→09:33)
[2019-06-23] MEDS ORDERED: 0.9 % Sodium Chloride 250 ML ONE (09:29)
[2019-06-23] MEDS ORDERED: Naloxone 0.4 MG/ML INJ IVP PRN (09:33)
[2019-06-23] MEDS ORDERED: Acetaminophen 325 MG TABLET PO PRN (09:33)
[2019-06-23] MEDS ORDERED: Ondansetron 4 MG/2 ML VIAL IVP PRN (09:33)
[2019-06-23] MEDS ORDERED: Nitroglycerin 0.4 MG TAB.SUBL SL PRN (09:33)
[2019-06-23] MEDS ORDERED: *HR* FentaNYL (PF) 100 MCG/2 ML VIAL IVP PRN (09:33)
[2019-06-23] MEDS ORDERED: *HR* LORazepam 2 MG/ML VIAL IVP PRN (09:33)
[2019-06-23] MEDS ORDERED: Insulin Human Regular 100 UNIT in 0.9 % Sodium Chloride 100 ML IVC SCH (09:33)
[2019-06-23] MEDS ORDERED: ACYCLOVIR 400 MG PO SCH (09:33)
[2019-06-23] MEDS ORDERED: 0.9 % Sodium Chloride w KCl 20 MEQ/1,000 ML MLS IVC SCH (09:33)
[2019-06-23] MEDS: *HR* Heparin 5,000 UNIT/ML VIAL SQ SCH ×2 (10:16→17:41)
[2019-06-23] MEDS: Cholecalciferol (D-3) 1,000 UNIT (25MCG) TABLET PO SCH (10:17)
[2019-06-23 10:49] LABS: ANA IgG by ELISA NONE DETECTED (None Detected)
[2019-06-23] MEDS ORDERED: Insulin DETEMIR 100 UNIT/ML X5UNITS SQ ONE ×2 (12:00)
[2019-06-23] MEDS ORDERED: Insulin LISPRO 300 UNITS/3 ML VIAL SQ SCH ×2 (12:00→21:00)
[2019-06-23] MEDS ORDERED: Insulin DETEMIR 100 UNIT/ML X5UNITS SQ SCH ×2 (18:00→21:00)
[2019-06-23] MEDS: lamoTRIgine 25 MG TABLET PO SCH (20:42)
[2019-06-23] MEDS: Melatonin 3 MG TABLET PO SCH (20:44)
[2019-06-24 00:10] LABS: APTT (LE Anticoag) 37 sec (32-48); Diluted Russell Viper Venom 31 sec (33-44); PT (LE-Anticoag) 12.6 sec (12.0-15.5)
[2019-06-24] MEDS: Ketorolac 15 MG/ML VIAL IVP SCH ×4 (00:22→17:24)
[2019-06-24 01:31] LABS: Basophils % 0.1 %; Hematocrit 31.8 % (35.3-44.9); Hemoglobin 10.6 g/dL (11.5-15.4); Immature Granulocytes % 0.3 % (0-4); Lymphocytes # 1.4 K/mcL (0.6-4.6); Lymphocytes % 20.3 %; Mean Corpuscular HGB Conc 33.3 g/dL (31.6-35.5); Mean Corpuscular Hemoglobin 28.4 pg (28.0-33.3); Mean Corpuscular Volume 85.3 fL (83.0-100.0); Monocytes # 0.5 K/mcL (0.0-1.3); Monocytes % 7.8 %; Neutrophils # 4.9 K/mcL (1.6-8.9); Platelet Count 162 K/mcL (140-400); Red Blood Count 3.73 M/mcL (3.82-4.97); Red Cell Distribution Width 13.2 % (11.5-14.5); Segmented Neutrophils % 71.5 %; White Blood Count 6.9 K/mcL (4.3-11.1)
[2019-06-24 01:38] LABS: BUN/Creatinine Ratio 26 (6-26); Blood Urea Nitrogen 14 mg/dL (6-20); Calcium 8.6 mg/dL (8.6-10.3); Carbon Dioxide 28 mEq/L (23-29); Chloride 104 mEq/L (98-107); Glucose 213 mg/dL (70-105); Osmolality,Calculated 295 (280-300); Potassium 4.1 mEq/L (3.5-5.1); Sodium 139 mEq/L (136-145); eGFR For African Americans > 60 (> 60); eGFR For Non-African Americans > 60 (> 60)
[2019-06-24] MEDS: *HR* OxyCODONE/APAP 5/325 TABLET PO PRN ×4 (03:01→21:52)
[2019-06-24] MEDS: *HR* Heparin 5,000 UNIT/ML VIAL SQ SCH ×2 (05:37→17:24)
[2019-06-24] MEDS: levETIRAcetam 250 MG TABLET PO SCH ×2 (05:38→17:25)
[2019-06-24] MEDS: Acyclovir 200 MG CAPSULE PO SCH (08:46)
[2019-06-24] MEDS: Cholecalciferol (D-3) 1,000 UNIT (25MCG) TABLET PO SCH (08:46)
[2019-06-24] MEDS: lamoTRIgine 25 MG TABLET PO SCH ×2 (08:46→21:46)
[2019-06-24] MEDS: Chlorhexidine Rinse 15 ML MOUTHWASH MM SCH ×2 (08:47→21:46)
[2019-06-24] MEDS: Pantoprazole 40 MG VIAL IVP SCH (08:47)
[2019-06-24] MEDS: Furosemide 20 MG/2 ML VIAL IVP SCH (08:47)
[2019-06-24] MEDS: Aspirin Enteric Coated 81 MG Tablet PO SCH (08:47)
[2019-06-24] MEDS: Insulin LISPRO 300 UNITS/3 ML VIAL SQ SCH ×4 (08:54→22:15)
[2019-06-24] MEDS: Insulin DETEMIR 100 UNIT/ML X5UNITS SQ SCH ×2 (09:01→22:14)
[2019-06-24] MEDS: Melatonin 3 MG TABLET PO SCH (21:51)
[2019-06-25] MEDS: Ketorolac 15 MG/ML VIAL IVP SCH ×5 (00:10→23:44)
[2019-06-25] MEDS ORDERED: Fluconazole 100 MG TABLET PO ONE (00:17)
[2019-06-25 00:39] LABS: Bilirubin,Urine Negative (Negative); Blood,Urine Negative (Negative); Clarity,Urine Clear (Clear); Color,Urine Yellow (Yellow); Glucose,Urine (UA) >=1000 mg/dL (Normal); Ketones,Urine Negative (Negative); Leukocyte Esterase,Urine Negative (Negative); Nitrite,Urine Negative (Negative); Protein,Urine Negative (Neg-Trace); Specific Gravity,Urine > 1.030 (1.010-1.025); Urobilinogen,Urine Normal (Normal)
[2019-06-25] MEDS: *HR* Heparin 5,000 UNIT/ML VIAL SQ SCH ×2 (06:19→17:18)
[2019-06-25] MEDS: levETIRAcetam 250 MG TABLET PO SCH ×2 (06:20→17:19)
[2019-06-25 06:54] LABS: Basophils % 0.3 %; Hematocrit 29.4 % (35.3-44.9); Hemoglobin 9.7 g/dL (11.5-15.4); Immature Granulocytes % 0.3 % (0-4); Lymphocytes # 1.6 K/mcL (0.6-4.6); Lymphocytes % 41.1 %; Mean Corpuscular Hemoglobin 27.8 pg (28.0-33.3); Mean Corpuscular Volume 84.2 fL (83.0-100.0); Mean Platelet Volume 10.1 fL (9.4-12.4); Monocytes # 0.3 K/mcL (0.0-1.3); Monocytes % 7.4 %; Platelet Count 169 K/mcL (140-400); Red Blood Count 3.49 M/mcL (3.82-4.97); Red Cell Distribution Width 13.2 % (11.5-14.5); Segmented Neutrophils % 49.9 %; White Blood Count 3.9 K/mcL (4.3-11.1)
[2019-06-25 07:13] LABS: BUN/Creatinine Ratio 40 (6-26); Blood Urea Nitrogen 19 mg/dL (6-20); Calcium 8.6 mg/dL (8.6-10.3); Carbon Dioxide 28 mEq/L (23-29); Chloride 105 mEq/L (98-107); Glucose 223 mg/dL (70-105); Osmolality,Calculated 301 (280-300); Sodium 141 mEq/L (136-145); eGFR For African Americans > 60 (> 60); eGFR For Non-African Americans > 60 (> 60)
[2019-06-25 08:36] LABS: Ristocetin Cofactor-VWF Active 231 % (51-215); Von Willebrand Factor Ag 270 % (52-214)
[2019-06-25] MEDS: Insulin LISPRO 300 UNITS/3 ML VIAL SQ SCH ×4 (08:56→20:28)
[2019-06-25] MEDS: Pantoprazole 40 MG VIAL IVP SCH (08:57)
[2019-06-25] MEDS: lamoTRIgine 25 MG TABLET PO SCH ×2 (08:57→20:22)
[2019-06-25] MEDS: Cholecalciferol (D-3) 1,000 UNIT (25MCG) TABLET PO SCH (08:57)
[2019-06-25] MEDS: Acyclovir 200 MG CAPSULE PO SCH (08:58)
[2019-06-25] MEDS: Insulin DETEMIR 100 UNIT/ML X5UNITS SQ SCH ×2 (08:58→20:26)
[2019-06-25] MEDS: Aspirin Enteric Coated 81 MG Tablet PO SCH (08:58)
[2019-06-25] MEDS: Chlorhexidine Rinse 15 ML MOUTHWASH MM SCH ×2 (08:58→20:22)
[2019-06-25] MEDS: *HR* OxyCODONE/APAP 5/325 TABLET PO PRN ×2 (11:20→16:36)
[2019-06-25 14:41] LABS: FACV Specimen WHOLE BLOOD
[2019-06-25] MEDS: Melatonin 3 MG TABLET PO SCH (20:22)
[2019-06-26] MEDS: *HR* OxyCODONE/APAP 5/325 TABLET PO PRN ×2 (00:36→07:52)
[2019-06-26 02:07] LABS: Basophils % 0.2 %; Eosinophils % 0.9 %; Hematocrit 29.9 % (35.3-44.9); Hemoglobin 9.8 g/dL (11.5-15.4); Immature Granulocytes % 0.2 % (0-4); Lymphocytes # 1.6 K/mcL (0.6-4.6); Lymphocytes % 36.3 %; Mean Corpuscular HGB Conc 32.8 g/dL (31.6-35.5); Mean Corpuscular Hemoglobin 27.5 pg (28.0-33.3); Mean Corpuscular Volume 83.8 fL (83.0-100.0); Mean Platelet Volume 9.7 fL (9.4-12.4); Monocytes # 0.4 K/mcL (0.0-1.3); Monocytes % 8.1 %; Neutrophils # 2.4 K/mcL (1.6-8.9); Platelet Count 188 K/mcL (140-400); Red Blood Count 3.57 M/mcL (3.82-4.97); Segmented Neutrophils % 54.3 %; White Blood Count 4.4 K/mcL (4.3-11.1)
[2019-06-26] MEDS: *HR* Heparin 5,000 UNIT/ML VIAL SQ SCH (05:40)
[2019-06-26] MEDS: levETIRAcetam 250 MG TABLET PO SCH (05:40)
[2019-06-26] MEDS: Ketorolac 15 MG/ML VIAL IVP SCH (05:40)
[2019-06-26 07:08] LABS: Fac V Leiden R506Q Mut Result NEGATIVE
[2019-06-26 07:41] VITALS: BP 96/61
[2019-06-26] MEDS: Acyclovir 200 MG CAPSULE PO SCH (07:51)
[2019-06-26] MEDS: lamoTRIgine 25 MG TABLET PO SCH (07:51)
[2019-06-26] MEDS: Aspirin Enteric Coated 81 MG Tablet PO SCH (07:52)
[2019-06-26] MEDS: Cholecalciferol (D-3) 1,000 UNIT (25MCG) TABLET PO SCH (07:52)
[2019-06-26] MEDS: Pantoprazole 40 MG VIAL IVP SCH (07:53)
[2019-06-26] MEDS: Insulin LISPRO 300 UNITS/3 ML VIAL SQ SCH ×2 (08:06→12:44)
[2019-06-26] MEDS: Insulin DETEMIR 100 UNIT/ML X5UNITS SQ SCH (08:06)
[2019-06-26] MEDS: Chlorhexidine Rinse 15 ML MOUTHWASH MM SCH (08:07)
[2019-06-26 23:41] LABS: Prothrombin G20210A Specimen WHOLE BLOOD
[2019-06-27 12:51] LABS: Prothrombin G20210A Mut Result NEGATIVE
== END 2019-06-26 14:59 | disposition home or self-care (01) | DRG 165 ==
LOC: EMEROOARM 07:52 → ICNU 07:52 → SUATTDRO 10:53 → ICNU 06-22 07:18 → 2NNU 06-23 10:54
PROVIDERS: ADMIT Internal Medicine; ATTEND Internal Medicine

== ENCOUNTER 2019-07-16 12:55 | Observation (INO) ==
[2019-07-16] MEDS ORDERED: 0.9 % Sodium Chloride 500 ML ONE (13:06)
[2019-07-16] MEDS ORDERED: 0.9 % Sodium Chloride 500 ML IVC ONE (13:12)
[2019-07-16] MEDS ORDERED: Heparin 25,000 UNIT/250 ML D5W 25,000 UNIT/250 ML IV.SOLN IVC SCH (13:15)
[2019-07-16 13:22] LABS: Basophils % 0.5 %; Eosinophils % 0.3 %; Hematocrit 41.7 % (35.3-44.9); Hemoglobin 14.7 g/dL (11.5-15.4); Immature Granulocytes % 0.2 % (0-4); Lymphocytes # 1.9 K/mcL (0.6-4.6); Lymphocytes % 31.7 %; Mean Corpuscular HGB Conc 35.3 g/dL (31.6-35.5); Mean Corpuscular Hemoglobin 27.9 pg (28.0-33.3); Mean Corpuscular Volume 79.1 fL (83.0-100.0); Mean Platelet Volume 9.5 fL (9.4-12.4); Monocytes # 0.4 K/mcL (0.0-1.3); Monocytes % 7.2 %; Neutrophils # 3.6 K/mcL (1.6-8.9); Platelet Count 322 K/mcL (140-400); Red Blood Count 5.27 M/mcL (3.82-4.97); Red Cell Distribution Width 13.2 % (11.5-14.5); Segmented Neutrophils % 60.1 %
[2019-07-16] MEDS ORDERED: *HR* Heparin 5,000 UNIT/ML VIAL IVP PRN ×2 (13:24)
[2019-07-16] MEDS ORDERED: *HR* Heparin 5,000 UNIT/ML VIAL IVP ONE (13:24)
[2019-07-16] MEDS ORDERED: Isovue-370 500 ML BOTTLE IVP ONE (13:26)
[2019-07-16 13:27] LABS: VBG HCO3 24 mEq/L (21-27); VBG PCO2 41 mmHg (41-51); VBG PH 7.38 pH Units (7.32-7.42); VBG PO2 125 mmHg (25-50)
[2019-07-16 13:29] LABS: INR 1.1
[2019-07-16 13:31] LABS: Activated Partial Thrombo Time 33.2 Seconds (26.0-36.0)
[2019-07-16 13:50] LABS: BUN/Creatinine Ratio 20 (6-26); Blood Urea Nitrogen 13 mg/dL (6-20); Calcium 9.9 mg/dL (8.6-10.3); Carbon Dioxide 23 mEq/L (23-29); Chloride 97 mEq/L (98-107); Glucose 495 mg/dL (70-105); Magnesium 1.9 mg/dL (1.6-2.6); Osmolality,Calculated 294 (280-300); Potassium 4.3 mEq/L (3.5-5.1); Sodium 131 mEq/L (136-145); Troponin I < 0.03 ng/mL (< 0.04); eGFR For African Americans > 60 (> 60); eGFR For Non-African Americans > 60 (> 60)
[2019-07-16 15:38] LABS: Bilirubin,Urine Negative (Negative); Blood,Urine Negative (Negative); Clarity,Urine Clear (Clear); Color,Urine Yellow (Yellow); Glucose,Urine (UA) >=1000 mg/dL (Normal); Ketones,Urine Trace mg/dL (Negative); Leukocyte Esterase,Urine Negative (Negative); Nitrite,Urine Negative (Negative); Protein,Urine Negative (Neg-Trace); Specific Gravity,Urine > 1.030 (1.010-1.025); Urobilinogen,Urine Normal (Normal)
[2019-07-16] MEDS ORDERED: Morphine Sulfate 2 MG/ML SYRINGE IVP STA (15:38)
[2019-07-16] MEDS ORDERED: *HR* FentaNYL (PF) 100 MCG/2 ML VIAL IVP STA (16:24)
[2019-07-16] MEDS ORDERED: Nitroglycerin 0.4 MG TAB.SUBL SL PRN (17:40)
[2019-07-16] MEDS ORDERED: Melatonin 3 MG TABLET PO PRN (17:40)
[2019-07-16] MEDS ORDERED: Naloxone 0.4 MG/ML INJ IVP PRN (17:42)
[2019-07-16] MEDS ORDERED: *HR* Dextrose 50 % in Water (Syg) 50 ML SYRINGE IVP PRN (17:47)
[2019-07-16] MEDS ORDERED: D5% in Water 1,000 ML IVC PRN (17:47)
[2019-07-16] MEDS ORDERED: Dextrose Gel 15 GM/37.5 ML TUBE PO PRN ×2 (17:47)
[2019-07-16] MEDS ORDERED: Insulin LISPRO 300 UNITS/3 ML VIAL SQ SCH (18:00)
[2019-07-16 18:18] LABS: BUN/Creatinine Ratio 22 (6-26); Blood Urea Nitrogen 11 mg/dL (6-20); Calcium 9.1 mg/dL (8.6-10.3); Carbon Dioxide 23 mEq/L (23-29); Chloride 101 mEq/L (98-107); Glucose 337 mg/dL (70-105); Osmolality,Calculated 289 (280-300); Potassium 3.8 mEq/L (3.5-5.1); Sodium 133 mEq/L (136-145); eGFR For African Americans > 60 (> 60); eGFR For Non-African Americans > 60 (> 60)
[2019-07-16] MEDS: levETIRAcetam 250 MG TABLET PO SCH (19:55)
[2019-07-16] MEDS: Famotidine 20 MG TABLET PO SCH (19:56)
[2019-07-16] MEDS: lamoTRIgine 25 MG TABLET PO SCH (19:57)
[2019-07-16] MEDS: 0.9 % Sodium Chloride 1,000 ML IVC SCH (20:06)
[2019-07-16] MEDS ORDERED: Insulin DETEMIR 100 UNIT/ML X5UNITS SQ SCH (21:00)
[2019-07-16] MEDS: Ondansetron 4 MG/2 ML VIAL IVP PRN (21:58)
[2019-07-17 01:34] LABS: Basophils % 0.5 %; Eosinophils # 0.1 K/mcL (0.0-0.6); Hematocrit 42.9 % (35.3-44.9); Hemoglobin 14.5 g/dL (11.5-15.4); Immature Granulocytes % 0.2 % (0-4); Lymphocytes # 2.6 K/mcL (0.6-4.6); Lymphocytes % 43.8 %; Mean Corpuscular HGB Conc 33.8 g/dL (31.6-35.5); Mean Corpuscular Hemoglobin 28.2 pg (28.0-33.3); Mean Corpuscular Volume 83.3 fL (83.0-100.0); Mean Platelet Volume 9.5 fL (9.4-12.4); Monocytes # 0.4 K/mcL (0.0-1.3); Monocytes % 6.2 %; Neutrophils # 2.8 K/mcL (1.6-8.9); Platelet Count 244 K/mcL (140-400); Red Blood Count 5.15 M/mcL (3.82-4.97); Red Cell Distribution Width 13.2 % (11.5-14.5); Segmented Neutrophils % 48.3 %; White Blood Count 5.9 K/mcL (4.3-11.1)
[2019-07-17 01:54] LABS: BUN/Creatinine Ratio 19 (6-26); Blood Urea Nitrogen 14 mg/dL (6-20); Carbon Dioxide 24 mEq/L (23-29); Chloride 100 mEq/L (98-107); Glucose 381 mg/dL (70-105); Osmolality,Calculated 290 (280-300); Potassium 4.1 mEq/L (3.5-5.1); Sodium 132 mEq/L (136-145); eGFR For African Americans > 60 (> 60); eGFR For Non-African Americans > 60 (> 60)
[2019-07-17] MEDS: levETIRAcetam 250 MG TABLET PO SCH ×2 (05:38→18:40)
[2019-07-17] MEDS ORDERED: Perflutren Lipid Microsphere 1.3 ML in 0.9 % Sodium Chloride 8.7 ML IVP ONE (09:43)
[2019-07-17] MEDS ORDERED: Perflutren Lipid Microsphere 2 ML VIAL ONE (09:44)
[2019-07-17] MEDS ORDERED: ISOVUE-370 200 ML INFUS..BTL ONE ×2 (09:52→11:26)
[2019-07-17] MEDS ORDERED: Heparin 1,000 UNITS/500 mL 500 ML ONE (09:52)
[2019-07-17] MEDS ORDERED: *HR* Heparin 10,000 UNIT/10 ML VIAL ONE (09:52)
[2019-07-17] MEDS ORDERED: 0.9 % Sodium Chloride 1,000 ML ONE ×2 (09:53→11:37)
[2019-07-17] MEDS ORDERED: Nitroglycerin 1,000 MCG/10 ML VIAL IV ONE (09:53)
[2019-07-17] MEDS: Insulin LISPRO 300 UNITS/3 ML VIAL SQ SCH ×4 (10:11→18:42)
[2019-07-17] MEDS: lamoTRIgine 25 MG TABLET PO SCH ×2 (10:13→20:08)
[2019-07-17] MEDS: Cholecalciferol (D-3) 1,000 UNIT (25MCG) TABLET PO SCH (10:13)
[2019-07-17] MEDS: Aspirin Enteric Coated 81 MG Tablet PO SCH (10:13)
[2019-07-17] MEDS: Famotidine 20 MG TABLET PO SCH ×2 (10:13→20:09)
[2019-07-17] MEDS: Insulin DETEMIR 100 UNIT/ML X5UNITS SQ SCH ×2 (10:14→20:09)
[2019-07-17] MEDS: Acyclovir 200 MG CAPSULE PO SCH (10:14)
[2019-07-17] MEDS: Ondansetron 4 MG/2 ML VIAL IVP PRN (10:27)
[2019-07-17] MEDS ORDERED: *HR* FentaNYL (PF) 100 MCG/2 ML VIAL ONE (11:33)
[2019-07-17] MEDS ORDERED: *HR* Midazolam HCl 2 MG/2 ML VIAL ONE (11:33)
[2019-07-17] MEDS: Acetaminophen 325 MG TABLET PO PRN (14:31)
[2019-07-17] MEDS: 0.9 % Sodium Chloride 1,000 ML IVC SCH (18:44)
[2019-07-17] MEDS ORDERED: SUMAtriptan succinate 25 MG TABLET PO ONE (19:55)
[2019-07-17] MEDS ORDERED: *HR* LORazepam 2 MG/ML VIAL IVP ONE (21:01)
[2019-07-18 02:47] LABS: Basophils % 0.2 %; Eosinophils % 0.1 %; Hematocrit 38.1 % (35.3-44.9); Hemoglobin 13.3 g/dL (11.5-15.4); Immature Granulocytes % 0.3 % (0-4); Lymphocytes # 1.5 K/mcL (0.6-4.6); Lymphocytes % 15.8 %; Mean Corpuscular HGB Conc 34.9 g/dL (31.6-35.5); Mean Corpuscular Hemoglobin 27.9 pg (28.0-33.3); Mean Platelet Volume 9.4 fL (9.4-12.4); Monocytes # 0.5 K/mcL (0.0-1.3); Monocytes % 5.8 %; Neutrophils # 7.2 K/mcL (1.6-8.9); Platelet Count 263 K/mcL (140-400); Red Blood Count 4.76 M/mcL (3.82-4.97); Red Cell Distribution Width 13.1 % (11.5-14.5); Segmented Neutrophils % 77.8 %
[2019-07-18 02:48] LABS: White Blood Count 9.3 K/mcL (4.3-11.1)
[2019-07-18 03:06] LABS: BUN/Creatinine Ratio 25 (6-26); Blood Urea Nitrogen 12 mg/dL (6-20); Calcium 9.1 mg/dL (8.6-10.3); Carbon Dioxide 25 mEq/L (23-29); Chloride 102 mEq/L (98-107); Glucose 229 mg/dL (70-105); Osmolality,Calculated 287 (280-300); Sodium 135 mEq/L (136-145); eGFR For African Americans > 60 (> 60); eGFR For Non-African Americans > 60 (> 60)
[2019-07-18] MEDS: levETIRAcetam 250 MG TABLET PO SCH (05:22)
[2019-07-18 07:35] VITALS: BP 85/49
[2019-07-18] MEDS ORDERED: SUMAtriptan succinate 25 MG TABLET PO ONE (09:49)
[2019-07-18] MEDS: Aspirin Enteric Coated 81 MG Tablet PO SCH (10:57)
[2019-07-18] MEDS: lamoTRIgine 25 MG TABLET PO SCH (10:57)
[2019-07-18] MEDS: Cholecalciferol (D-3) 1,000 UNIT (25MCG) TABLET PO SCH (10:57)
[2019-07-18] MEDS: Ondansetron 4 MG/2 ML VIAL IVP PRN (10:57)
[2019-07-18] MEDS: Acyclovir 200 MG CAPSULE PO SCH (10:57)
[2019-07-18] MEDS: Famotidine 20 MG TABLET PO SCH (10:58)
[2019-07-18] MEDS: Insulin LISPRO 300 UNITS/3 ML VIAL SQ SCH ×6 (11:16→16:48)
[2019-07-18] MEDS: Acetaminophen 325 MG TABLET PO PRN (16:42)
[2019-07-18] MEDS ORDERED: Insulin LISPRO 300 UNITS/3 ML VIAL SQ SCH (21:00)
== END 2019-07-18 18:00 | disposition home or self-care (01) ==
LOC: EMEROOARM 12:55 → 2NENU 12:55 → SUATTDRO 16:28 → 2NENU 18:42
PROVIDERS: ADMIT Student in an Organized Health Care Education/Training Program; ATTEND Family Medicine